=== PATIENT | male | born 1975 | race Caucasian/White ===

== ENCOUNTER 2019-12-03 08:36 | Emergency (ER) | payer OTHER ==
[~2019-12-03] VITALS: Ht 167.6 cm; Wt 63.5 kg
[2019-12-03] MEDS ORDERED: HYDR1TAB94 PO (09:44)
== END 2019-12-03 10:00 | disposition home or self-care (01) ==
LOC: ER 08:36
DX: S82.831A Other fracture of upper and lower end of right fibula, initial encounter for closed fracture (principal); F17.210 Nicotine dependence, cigarettes, uncomplicated; Y30.XXXA Falling, jumping or pushed from a high place, undetermined intent, initial encounter
CPT/HCPCS: 29505; 73590; 99283-25; A9270-GY

== ENCOUNTER 2020-02-29 02:14 | Emergency (ER) | payer OTHER | END 2020-02-29 05:45 | disposition home or self-care (01) | LOC: ER 02:14 | DX: N28.9 Disorder of kidney and ureter, unspecified (principal); M62.82 Rhabdomyolysis; F17.210 Nicotine dependence, cigarettes, uncomplicated; Z79.82 Long term (current) use of aspirin; Z79.899 Other long term (current) drug therapy ==

== ENCOUNTER 2020-11-01 04:45 | Observation (INO) | payer OTHER ==
[~2020-11-01] VITALS: Ht 167.6 cm; Wt 60.8 kg
[~2020-11-01 04:45] MED LIST: ASPI81CH PO; HYDR1TAB94 PO; LISI5 PO
[2020-11-01 05:12] LABS: BASOPHILS ABSOLUTE AUTO 0.03 K/mm3 (0.00-0.23); BASOPHILS PERCENT AUTO 0 % (0-2); EOSINOPHILS PERCENT AUTO 0 % (0-6); Hemoglobin 17.8 g/dL (13.5-17.5); IMMATURE GRAN ABSOLUTE AUTO 0.05 K/mm3 (0.00-0.10); IMMATURE GRAN PERCENT AUTO 1 % (0-1); LYMPHOCYTES ABSOLUTE AUTO 1.28 K/mm3 (0.84-5.20); LYMPHOCYTES PERCENT AUTO 12 % (21-46); MONOCYTES ABSOLUTE AUTO 1.03 K/mm3 (0.16-1.47); MONOCYTES PERCENT AUTO 10 % (4-13); Mean Corpuscular HGB 31.8 pg (26.0-34.0); Mean Corpuscular HGB Conc 35.6 g/dL (31.5-36.5); Mean Corpuscular Volume 89 fL (80-100); Mean Platelet Volume 10.3 fL (9.1-12.4); NEUTROPHILS ABSOLUTE AUTO 8.02 K/mm3 (1.96-9.15); NEUTROPHILS PERCENT AUTO 77 % (41-73); Platelet Count 262 K/mm3 (150-400); RDW Coefficient Variation 12.5 % (11.7-14.2); RDW Standard Deviation 40.9 fL (35.1-46.3); White Blood Cell Count 10.41 K/mm3 (4.00-11.30)
[2020-11-01 05:34] LABS: Alanine Aminotransfer (ALT/SGP 35 U/L (12-78); Albumin, Blood 5.2 g/dL (3.4-5.0); Albumin/Globulin Ratio 1.1 (0.8-1.8); Alk Phos 85 U/L (50-136); Anion Gap 17 mmol/L (6-16); Aspartate Aminotrans (AST/SGOT 59 U/L (12-37); Bilirubin, Total 1.1 mg/dL (0.1-1.0); Blood Urea Nitrogen 45 mg/dL (8-24); Bun/Creatinine Ratio 16.4 (12.0-20.0); CO2, Blood 22 mmol/L (21-32); CPK Creatine Kinase 812 U/L (39-308); Calcium, Blood 9.9 mg/dL (8.5-10.1); Chloride, Blood 88 mmol/L (98-108); Creatine Kinase MB 7.8 ng/mL (0.0-3.6); Creatinine, Blood 2.75 mg/dL (0.60-1.20); Ethanol (Alcohol), Blood, Med <3 mg/dL; Globulin, Blood 4.7 g/dL (2.2-4.0); Glomerular Filtration Rate 26 (60-); Glucose, Blood 130 mg/dL (70-99); Magnesium, Blood 2.2 mg/dL (1.6-2.4); Potassium, Blood 4.8 mmol/L (3.5-5.5); Sodium, Blood 127 mmol/L (136-145); Total Protein, Blood 9.9 g/dL (6.4-8.2); Troponin I <0.015 ng/mL (0.000-0.040)
[2020-11-01 06:10] LABS: U Amphetamine Screen Not Detected; U Barbituate Screen Not Detected; U Benzodiazapine Screen Not Detected; U Buprenorphine Screen Not Detected; U Cannabinoids Screen DETECTED; U Cocaine Screen Not Detected; U Methadone Screen Not Detected; U Methamphetamine Screen Not Detected; U Opiates Screen Not Detected; U Oxycodone Screen Not Detected; U Phencyclidine Screen Not Detected; U Propoxyphene Screen Not Detected
[2020-11-01 06:55] LABS: CHOL/HDL RATIO 1.7; Cholesterol 283 mg/dL (50-200); HDL Cholesterol 166 mg/dL (>39); LDL/HDL RATIO 0.6; Low Density Lipoprotein Chol 96 mg/dL (0-110); Triglycerides 107 mg/dL (30-160); Very Low Density Lipoprot Chol 21 mg/dL (6-32)
[2020-11-01] MEDS ORDERED: ESCI10 PO (08:29)
[2020-11-01] MEDS ORDERED: ZOLP5 PO (10:36)
--- NOTE | 2020-11-01 17:51 | NUR ---
PATIENT IS ALERT AND ORIENTED AND COOPERATIVE WITH CARE. CIWA Q4H PER PROTOCOL. CIWA SCORE 2 SINCE ON MEDICAL FLOOR. PATIENT HAS FLUIDS RUNNING. NO C/O ABDOMINAL PAIN. PATIENT IS INDEPENDENT IN HER ROOM. WILL CONTINUE TO MONITOR
--- NOTE | 2020-11-02 04:37 | NUR ---
SHIFT SUMMARY ASSUMED CARE OF PT AT 1900. PT IS A/OX4. HEART SOUNDS REGULAR, LUNG SOUNDS CLEAR. PT DENIES PAIN IN ABD. PT IS INDEPENDENT IN ROOM. CIWAH A 2-4 FOR TREMORS. CALL LIGHT IN REACH, BED IN LOWEST POSTION.
[2020-11-02 05:00] LABS: BASOPHILS ABSOLUTE AUTO 0.04 K/mm3 (0.00-0.23); BASOPHILS PERCENT AUTO 1 % (0-2); EOSINOPHILS PERCENT AUTO 1 % (0-6); Hematocrit 45.6 % (37.0-53.0); Hemoglobin 15.8 g/dL (13.5-17.5); IMMATURE GRAN ABSOLUTE AUTO 0.04 K/mm3 (0.00-0.10); IMMATURE GRAN PERCENT AUTO 1 % (0-1); LYMPHOCYTES ABSOLUTE AUTO 2.08 K/mm3 (0.84-5.20); LYMPHOCYTES PERCENT AUTO 29 % (21-46); MONOCYTES ABSOLUTE AUTO 1.01 K/mm3 (0.16-1.47); MONOCYTES PERCENT AUTO 14 % (4-13); Mean Corpuscular HGB Conc 34.6 g/dL (31.5-36.5); Mean Corpuscular Volume 92 fL (80-100); Mean Platelet Volume 10.4 fL (9.1-12.4); NEUTROPHILS ABSOLUTE AUTO 3.89 K/mm3 (1.96-9.15); NEUTROPHILS PERCENT AUTO 54 % (41-73); Platelet Count 173 K/mm3 (150-400); RDW Coefficient Variation 12.1 % (11.7-14.2); RDW Standard Deviation 41.1 fL (35.1-46.3); Red Blood Cell Count 4.94 M/mm3 (4.30-5.90); White Blood Cell Count 7.16 K/mm3 (4.00-11.30)
[2020-11-02 05:22] LABS: Alanine Aminotransfer (ALT/SGP 30 U/L (12-78); Albumin, Blood 3.8 g/dL (3.4-5.0); Alk Phos 56 U/L (50-136); Anion Gap 5 mmol/L (6-16); Aspartate Aminotrans (AST/SGOT 69 U/L (12-37); Bilirubin, Total 1.2 mg/dL (0.1-1.0); Blood Urea Nitrogen 18 mg/dL (8-24); Bun/Creatinine Ratio 19.7 (12.0-20.0); CO2, Blood 26 mmol/L (21-32); Calcium, Blood 8.3 mg/dL (8.5-10.1); Chloride, Blood 100 mmol/L (98-108); Creatinine, Blood 0.91 mg/dL (0.60-1.20); Glomerular Filtration Rate >60 (60-); Glucose, Blood 96 mg/dL (70-99); Phosphorus, Blood 1.6 mg/dL (2.5-4.9); Potassium, Blood 3.9 mmol/L (3.5-5.5); Sodium, Blood 131 mmol/L (136-145)
[2020-11-02 05:23] LABS: Globulin, Blood 3.7 g/dL (2.2-4.0)
[2020-11-02 05:38] LABS: Total Protein, Blood 7.5 g/dL (6.4-8.2)
[2020-11-02] MEDS ORDERED: MULVITA PO (14:07)
[2020-11-02] MEDS ORDERED: B-1100 M1 PO (14:07)
--- NOTE | 2020-11-02 14:42 | NUR ---
PATIENT D/C'D TO HOME WITH FAMILY. DC INSTRUCTIONS AND EDUCATION DISCUSSED WITH PATIENT AND COPY PROVIDED. RX MEDICATIONS FAXED TO IN [place]. PATIENT DENIES ANY FURTHER QUESTIONS OR CONCERNS.
== END 2020-11-02 14:29 | disposition home or self-care (01) ==
LOC: ER 04:45 → MEDS 04:46 → ER 05:39 → SURS 05:39 → ER 05:49 → MEDS 05:49
PROVIDERS: Emergency Medicine; ADMIT Internal Medicine
DX: N17.9 Acute kidney failure, unspecified (principal); E86.0 Dehydration; E87.1 Hypo-osmolality and hyponatremia; I10 Essential (primary) hypertension; F10.20 Alcohol dependence, uncomplicated; F12.90 Cannabis use, unspecified, uncomplicated; E83.39 Other disorders of phosphorus metabolism; F17.210 Nicotine dependence, cigarettes, uncomplicated
CPT/HCPCS: 36415; 76770; 80053; 80061; 82550; 82553; 83690; 83735; 84100; 84484; 85025; 93005; 93010; 96372; 96372-59; 96374; 96376; 99285-25; A9270; C9113; G0378; G0480; J1630; J1650; J3411; J3475; J7030; J7042; J7060

== ENCOUNTER 2020-12-06 17:53 | Emergency (ER) | payer OTHER ==
[~2020-12-06] VITALS: Ht 167.6 cm; Wt 65.8 kg
[~2020-12-06 17:53] MED LIST changes: +B-1100 M1 PO; +ESCI10 PO; +MULVITA PO; +ZOLP5 PO
[2020-12-06 18:27] LABS: BASOPHILS ABSOLUTE AUTO 0.05 K/mm3 (0.00-0.23); BASOPHILS PERCENT AUTO 1 % (0-2); EOSINOPHILS ABSOLUTE AUTO 0.07 K/mm3 (0.00-0.68); EOSINOPHILS PERCENT AUTO 1 % (0-6); Hematocrit 50.9 % (37.0-53.0); Hemoglobin 17.8 g/dL (13.5-17.5); IMMATURE GRAN ABSOLUTE AUTO 0.05 K/mm3 (0.00-0.10); IMMATURE GRAN PERCENT AUTO 1 % (0-1); LYMPHOCYTES ABSOLUTE AUTO 1.56 K/mm3 (0.84-5.20); LYMPHOCYTES PERCENT AUTO 15 % (21-46); MONOCYTES ABSOLUTE AUTO 1.17 K/mm3 (0.16-1.47); MONOCYTES PERCENT AUTO 11 % (4-13); Mean Corpuscular HGB 31.2 pg (26.0-34.0); Mean Corpuscular Volume 89 fL (80-100); Mean Platelet Volume 9.8 fL (9.1-12.4); NEUTROPHILS PERCENT AUTO 72 % (41-73); Platelet Count 285 K/mm3 (150-400); RDW Coefficient Variation 12.3 % (11.7-14.2); Red Blood Cell Count 5.71 M/mm3 (4.30-5.90)
[2020-12-06 18:44] LABS: Albumin, Blood 4.8 g/dL (3.4-5.0); Albumin/Globulin Ratio 1.1 (0.8-1.8); Bilirubin, Total 1.1 mg/dL (0.1-1.0); Bun/Creatinine Ratio 12.5 (12.0-20.0); Calcium, Blood 9.7 mg/dL (8.5-10.1); Creatinine, Blood 2.08 mg/dL (0.60-1.20); Globulin, Blood 4.5 g/dL (2.2-4.0); Potassium, Blood 3.6 mmol/L (3.5-5.5); Total Protein, Blood 9.3 g/dL (6.4-8.2)
[2020-12-06] MEDS ORDERED: ONDA4ODT MM (21:35)
== END 2020-12-06 21:45 | disposition home or self-care (01) ==
LOC: ER 17:53
PROVIDERS: Physician Assistant
DX: E86.0 Dehydration (principal); R11.2 Nausea with vomiting, unspecified; R19.7 Diarrhea, unspecified; Z79.899 Other long term (current) drug therapy; Z87.891 Personal history of nicotine dependence
CPT/HCPCS: 36415; 80053; 85025; 96374; 99284-25; J2405; J7030

== ENCOUNTER 2021-01-28 07:03 | Emergency (ER) | payer OTHER ==
[~2021-01-28] VITALS: Ht 167.6 cm; Wt 65.8 kg
[~2021-01-28 07:03] MED LIST changes: +ONDA4ODT MM
[2021-01-28 09:06] LABS: BASOPHILS ABSOLUTE AUTO 0.03 K/mm3 (0.00-0.23); BASOPHILS PERCENT AUTO 1 % (0-2); EOSINOPHILS ABSOLUTE AUTO 0.07 K/mm3 (0.00-0.68); EOSINOPHILS PERCENT AUTO 1 % (0-6); Hematocrit 43.4 % (37.0-53.0); Hemoglobin 15.5 g/dL (13.5-17.5); IMMATURE GRAN ABSOLUTE AUTO 0.01 K/mm3 (0.00-0.10); IMMATURE GRAN PERCENT AUTO 0 % (0-1); LYMPHOCYTES PERCENT AUTO 28 % (21-46); MONOCYTES ABSOLUTE AUTO 0.82 K/mm3 (0.16-1.47); MONOCYTES PERCENT AUTO 17 % (4-13); Mean Corpuscular HGB 32.1 pg (26.0-34.0); Mean Corpuscular HGB Conc 35.7 g/dL (31.5-36.5); Mean Corpuscular Volume 90 fL (80-100); NEUTROPHILS ABSOLUTE AUTO 2.61 K/mm3 (1.96-9.15); NEUTROPHILS PERCENT AUTO 53 % (41-73); Platelet Count 234 K/mm3 (150-400); RDW Standard Deviation 39.8 fL (35.1-46.3); Red Blood Cell Count 4.83 M/mm3 (4.30-5.90); White Blood Cell Count 4.94 K/mm3 (4.00-11.30)
[2021-01-28 09:07] LABS: Alanine Aminotransfer (ALT/SGP 33 U/L (12-78); Albumin, Blood 3.9 g/dL (3.4-5.0); Albumin/Globulin Ratio 1.1 (0.8-1.8); Alk Phos 65 U/L (50-136); Anion Gap 7 mmol/L (6-16); Aspartate Aminotrans (AST/SGOT 45 U/L (12-37); Bilirubin, Total 0.8 mg/dL (0.1-1.0); Blood Urea Nitrogen 13 mg/dL (8-24); Bun/Creatinine Ratio 15.1 (12.0-20.0); CO2, Blood 29 mmol/L (21-32); Calcium, Blood 8.4 mg/dL (8.5-10.1); Chloride, Blood 98 mmol/L (98-108); Creatinine, Blood 0.86 mg/dL (0.60-1.20); Globulin, Blood 3.5 g/dL (2.2-4.0); Glomerular Filtration Rate >60 (60-); Glucose, Blood 104 mg/dL (70-99); Potassium, Blood 3.5 mmol/L (3.5-5.5); Sodium, Blood 134 mmol/L (136-145); Total Protein, Blood 7.4 g/dL (6.4-8.2)
[2021-01-28] MEDS ORDERED: ONDA4ODT MM (09:38)
== END 2021-01-28 10:06 | disposition home or self-care (01) ==
LOC: ER 07:03
PROVIDERS: Physician Assistant
DX: R11.2 Nausea with vomiting, unspecified (principal); R19.7 Diarrhea, unspecified; I10 Essential (primary) hypertension; Z79.899 Other long term (current) drug therapy; Z20.822 Contact with and (suspected) exposure to COVID-19
CPT/HCPCS: 36415; 80053; 83690; 85025; 96361; 96374; 99284-25; A9270; J2405; J7030

== ENCOUNTER 2023-03-01 20:07 | Emergency (ER) | payer OTHER ==
[~2023-03-01] VITALS: Ht 167.6 cm; Wt 59.0 kg
[2023-03-01 20:53] LABS: BASOPHILS ABSOLUTE AUTO 0.02 K/mm3 (0.00-0.23); BASOPHILS PERCENT AUTO 0 % (0-2); EOSINOPHILS ABSOLUTE AUTO 0.01 K/mm3 (0.00-0.68); EOSINOPHILS PERCENT AUTO 0 % (0-6); Hematocrit 42.8 % (37.0-53.0); Hemoglobin 14.8 g/dL (13.5-17.5); IMMATURE GRAN ABSOLUTE AUTO 0.02 K/mm3 (0.00-0.10); IMMATURE GRAN PERCENT AUTO 0 % (0-1); LYMPHOCYTES ABSOLUTE AUTO 0.97 K/mm3 (0.84-5.20); LYMPHOCYTES PERCENT AUTO 12 % (21-46); MONOCYTES ABSOLUTE AUTO 0.65 K/mm3 (0.16-1.47); MONOCYTES PERCENT AUTO 8 % (4-13); Mean Corpuscular HGB 32.5 pg (26.0-34.0); Mean Corpuscular HGB Conc 34.6 g/dL (31.5-36.5); Mean Corpuscular Volume 94 fL (80-100); Mean Platelet Volume 10.1 fL (9.1-12.4); NEUTROPHILS ABSOLUTE AUTO 6.18 K/mm3 (1.96-9.15); NEUTROPHILS PERCENT AUTO 79 % (41-73); Platelet Count 259 K/mm3 (150-400); RDW Standard Deviation 44.9 fL (35.1-46.3); Red Blood Cell Count 4.55 M/mm3 (4.30-5.90); White Blood Cell Count 7.85 K/mm3 (4.00-11.30)
[2023-03-01 21:13] LABS: Alanine Aminotransfer (ALT/SGP 28 U/L (12-78); Albumin, Blood 3.6 g/dL (3.4-5.0); Alk Phos 46 U/L (50-136); Anion Gap 6 mmol/L (6-16); Aspartate Aminotrans (AST/SGOT 53 U/L (12-37); Bilirubin, Total 0.7 mg/dL (0.1-1.0); Blood Urea Nitrogen 5 mg/dL (8-24); Bun/Creatinine Ratio 6.3 (12.0-20.0); CO2, Blood 28 mmol/L (21-32); Calcium, Blood 9.2 mg/dL (8.5-10.1); Chloride, Blood 102 mmol/L (98-108); Globulin, Blood 3.6 g/dL (2.2-4.0); Glomerular Filtration Rate 108 (60-); Glucose, Blood 126 mg/dL (70-99); Potassium, Blood 3.8 mmol/L (3.5-5.5); Sodium, Blood 136 mmol/L (136-145); Total Protein, Blood 7.2 g/dL (6.4-8.2)
[2023-03-01 21:55] LABS: Source, Urine Clean Catch
[2023-03-01 21:58] LABS: Magnesium, Blood 1.5 mg/dL (1.6-2.4)
[2023-03-01 22:13] LABS: Bilirubin, Urine Neg (Neg); Blood, Urine Neg (Neg); Glucose Qualitative, Urine Neg (Neg); Ketones, Urine 3+ (Neg); Leukocyte Esterase, Urine Neg (Neg); Nitrite, Urine Neg (Neg); Protein, Urine 2+ (Neg); Urobilinogen, Urine NORM (Normal)
[2023-03-01 22:51] LABS: Appearance, Urine Hazy (Clear); Color, Urine Yellow (P-Yellow)
[2023-03-01 22:52] LABS: Bacteria Few /hpf; Hyaline Casts 0-2 /lpf (0-2); Mucus Light (0-Heavy); Red Blood Cells, Urine 0-2 /hpf (0-2); Squamous Epithelial Cells Few /hpf (Few); White Blood Cells, Urine 0-2 /hpf (0-5)
[2023-03-01 22:55] LABS: Ethanol (Alcohol), Blood, Med <3 mg/dL
[2023-03-01 23:07] LABS: U Cannabinoids Screen DETECTED
[2023-03-01 23:08] LABS: U Amphetamine Screen Not Detected; U Barbituate Screen Not Detected; U Benzodiazapine Screen Not Detected; U Buprenorphine Screen Not Detected; U Cocaine Screen Not Detected; U Methadone Screen Not Detected; U Methamphetamine Screen Not Detected; U Opiates Screen Not Detected; U Oxycodone Screen Not Detected; U Phencyclidine Screen Not Detected; U Propoxyphene Screen Not Detected
[2023-03-01 23:35] LABS: International Normalized Ratio 1.02; Prothrombin Time Results 10.7 Sec (9.7-11.5)
[2023-03-02 00:15] VITALS: BP 152/88
[2023-03-02] MEDS ORDERED: LEVE500 PO (00:22)
== END 2023-03-02 00:41 | disposition home or self-care (01) ==
LOC: ER 20:07
PROVIDERS: Emergency Medicine
DX: R56.9 Unspecified convulsions (principal); E86.0 Dehydration; F10.139 Alcohol abuse with withdrawal, unspecified; Z79.899 Other long term (current) drug therapy; I10 Essential (primary) hypertension; Z86.73 Personal history of transient ischemic attack (TIA), and cerebral infarction without residual deficits
CPT/HCPCS: 70450; 71046; 80053; 81001; 82550; 82947; 83735; 85025; 85610; 85730; 93005; 93010; 96361; 96365; 96375; 99285-25; J1953; J2405; J7030

== ENCOUNTER 2023-03-26 19:29 | Inpatient (IN) | payer OTHER ==
[~2023-03-26] VITALS: Ht 167.6 cm; Wt 59.7 kg
[~2023-03-26 19:29] MED LIST changes: +LEVE500 PO
[2023-03-26 20:03] LABS: Source, Urine Clean Catch
[2023-03-26 20:06] LABS: BASOPHILS ABSOLUTE AUTO 0.03 K/mm3 (0.00-0.23); BASOPHILS PERCENT AUTO 0 % (0-2); EOSINOPHILS ABSOLUTE AUTO 0.04 K/mm3 (0.00-0.68); EOSINOPHILS PERCENT AUTO 1 % (0-6); Hematocrit 41.5 % (37.0-53.0); Hemoglobin 15.5 g/dL (13.5-17.5); IMMATURE GRAN ABSOLUTE AUTO 0.04 K/mm3 (0.00-0.10); IMMATURE GRAN PERCENT AUTO 1 % (0-1); LYMPHOCYTES ABSOLUTE AUTO 0.57 K/mm3 (0.84-5.20); LYMPHOCYTES PERCENT AUTO 7 % (21-46); MONOCYTES ABSOLUTE AUTO 0.95 K/mm3 (0.16-1.47); MONOCYTES PERCENT AUTO 12 % (4-13); Mean Corpuscular HGB 31.9 pg (26.0-34.0); Mean Corpuscular HGB Conc 37.3 g/dL (31.5-36.5); Mean Corpuscular Volume 85 fL (80-100); Mean Platelet Volume 12.4 fL (9.1-12.4); NEUTROPHILS ABSOLUTE AUTO 6.08 K/mm3 (1.96-9.15); NEUTROPHILS PERCENT AUTO 79 % (41-73); Platelet Count 143 K/mm3 (150-400); RDW Coefficient Variation 11.8 % (11.7-14.2); RDW Standard Deviation 36.7 fL (35.1-46.3); Red Blood Cell Count 4.86 M/mm3 (4.30-5.90); White Blood Cell Count 7.71 K/mm3 (4.00-11.30)
[2023-03-26 20:07] LABS: Appearance, Urine Cloudy (Clear); Blood, Urine 2+ (Neg); Color, Urine Yellow (P-Yellow); Glucose Qualitative, Urine 1+ (Neg); Ketones, Urine 1+ (Neg); Leukocyte Esterase, Urine 1+ (Neg); Nitrite, Urine Neg (Neg); Protein, Urine 3+ (Neg); Specific Gravity, Urine 1.025 (1.003-1.022); Urobilinogen, Urine 2+ (Normal)
[2023-03-26 20:17] LABS: Bilirubin, Urine 1+ (Neg)
[2023-03-26 20:23] LABS: Bacteria Mod /hpf; Squamous Epithelial Cells Not Seen /hpf (Few)
[2023-03-26 20:24] LABS: Ethanol (Alcohol), Blood, Med 117 mg/dL; Magnesium, Blood 2.3 mg/dL (1.6-2.4)
[2023-03-26 20:28] LABS: Alanine Aminotransfer (ALT/SGP 63 U/L (12-78); Albumin, Blood 3.3 g/dL (3.4-5.0); Albumin/Globulin Ratio 0.8 (0.8-1.8); Alk Phos 69 U/L (50-136); Anion Gap Unable to Calculate mmol/L (6-16); Aspartate Aminotrans (AST/SGOT 116 U/L (12-37); Bilirubin, Total 1.2 mg/dL (0.1-1.0); Blood Urea Nitrogen 37 mg/dL (8-24); Bun/Creatinine Ratio 11.9 (12.0-20.0); CO2, Blood 33 mmol/L (21-32); Calcium, Blood 8.1 mg/dL (8.5-10.1); Chloride, Blood <50 mmol/L (98-108); Creatinine, Blood 3.12 mg/dL (0.60-1.20); Globulin, Blood 4.1 g/dL (2.2-4.0); Glomerular Filtration Rate 24 (60-); Glucose, Blood 184 mg/dL (70-99); Potassium, Blood 3.1 mmol/L (3.5-5.5); Sodium, Blood 114 mmol/L (136-145); Total Protein, Blood 7.4 g/dL (6.4-8.2)
[2023-03-26 21:30] LABS: Magnesium, Blood 1.9 mg/dL (1.6-2.4)
[2023-03-26 21:49] LABS: Bun/Creatinine Ratio 12.9 (12.0-20.0); Creatinine, Blood 2.79 mg/dL (0.60-1.20); Potassium, Blood 2.8 mmol/L (3.5-5.5)
[2023-03-27] VITALS (44 sets, daily range): BP systolic 92–184; BP diastolic 70–151
[2023-03-27 01:08] LABS: International Normalized Ratio 0.98; Prothrombin Time Results 10.3 Sec (9.7-11.5)
[2023-03-27 01:27] LABS: Albumin, Blood 3.2 g/dL (3.4-5.0); Anion Gap 16 mmol/L (6-16); Blood Urea Nitrogen 32 mg/dL (8-24); Bun/Creatinine Ratio 14.6 (12.0-20.0); CO2, Blood 40 mmol/L (21-32); Calcium, Blood 7.5 mg/dL (8.5-10.1); Chloride, Blood 63 mmol/L (98-108); Creatinine, Blood 2.19 mg/dL (0.60-1.20); Glomerular Filtration Rate 36 (60-); Glucose, Blood 138 mg/dL (70-99); Phosphorus, Blood 5.1 mg/dL (2.5-4.9); Potassium, Blood 3.3 mmol/L (3.5-5.5); Sodium, Blood 119 mmol/L (136-145)
[2023-03-27 04:14] LABS: Albumin, Blood 3.1 g/dL (3.4-5.0); Blood Urea Nitrogen 32 mg/dL (8-24); Bun/Creatinine Ratio 15.3 (12.0-20.0); CHOL/HDL RATIO 1.5; CO2, Blood 41 mmol/L (21-32); Calcium, Blood 7.5 mg/dL (8.5-10.1); Chloride, Blood 67 mmol/L (98-108); Cholesterol 164 mg/dL (50-200); Creatinine, Blood 2.09 mg/dL (0.60-1.20); Glomerular Filtration Rate 38 (60-); Glucose, Blood 143 mg/dL (70-99); HDL Cholesterol 112 mg/dL (>39); LDL/HDL RATIO 0.3; Low Density Lipoprotein Chol 35 mg/dL (0-110); Phosphorus, Blood 4.3 mg/dL (2.5-4.9); Potassium, Blood 3.4 mmol/L (3.5-5.5); Triglycerides 86 mg/dL (30-160); Very Low Density Lipoprot Chol 17 mg/dL (6-32)
[2023-03-27 04:22] LABS: Hematocrit 36.7 % (37.0-53.0); Hemoglobin 13.7 g/dL (13.5-17.5); Mean Corpuscular HGB Conc 37.3 g/dL (31.5-36.5); Mean Corpuscular Volume 86 fL (80-100); Mean Platelet Volume 12.8 fL (9.1-12.4); Platelet Count 110 K/mm3 (150-400); RDW Coefficient Variation 11.9 % (11.7-14.2); RDW Standard Deviation 36.9 fL (35.1-46.3); Red Blood Cell Count 4.28 M/mm3 (4.30-5.90); White Blood Cell Count 4.93 K/mm3 (4.00-11.30)
[2023-03-27 04:29] LABS: BAND PERCENT MAN 14 % (0-8); BASOPHILS PERCENT MAN 0 % (0-2); EOSINOPHILS PERCENT MAN 0 % (0-6); LYMPHOCYTES ABSOLUTE MAN 0.39 K/mm3 (0.84-5.20); LYMPHOCYTES PERCENT MAN 8 % (21-46); MONOCYTES ABSOLUTE MAN 0.83 K/mm3 (0.16-1.47); MONOCYTES PERCENT MAN 17 % (4-13); NEUTROPHILS ABSOLUTE MAN 3.69 K/mm3 (1.96-9.15); SEG NEUTROPHILS PERCENT MAN 61 % (41-73); TOTAL CELLS COUNTED 100
[2023-03-27 04:47] LABS: Anion Gap 11 mmol/L (6-16); Sodium, Blood 119 mmol/L (136-145)
[2023-03-27 06:56] LABS: Albumin, Blood 3.1 g/dL (3.4-5.0); Anion Gap 10 mmol/L (6-16); Blood Urea Nitrogen 31 mg/dL (8-24); Bun/Creatinine Ratio 16.6 (12.0-20.0); CO2, Blood 41 mmol/L (21-32); Calcium, Blood 7.7 mg/dL (8.5-10.1); Chloride, Blood 70 mmol/L (98-108); Creatinine, Blood 1.87 mg/dL (0.60-1.20); Glomerular Filtration Rate 44 (60-); Glucose, Blood 139 mg/dL (70-99); Phosphorus, Blood 3.6 mg/dL (2.5-4.9); Sodium, Blood 121 mmol/L (136-145)
--- NOTE | 2023-03-27 07:16 | NUR ---
ASSUMED CARE: PT RESTING IN BED, O2 MASK AT 6L. SINUS TACH AT 101 WITH PVCS. RECENTLY MEDICATED WITH ATIVAN BY NIGHT RN. NS AT 100/HR RUNNING AT THIS TIME. NO ACUTE NEEDS OR CONCERNS AT THIS TIME.
--- NOTE | 2023-03-27 07:47 | NUR ---
CALL TO DR ELY WITH CONCERNS ABOUT PT'S RESPIRATORY STATUS. LUNG SOUNDS VERY COARSE AND NO XRAY HAD BEEN PERFORMED BUT ABDOMINAL CT DONE. REQUESTS CXR TO BE ORDERED AND WILL REVIEW CHART FOR ORDERS REGARDING MORE FLUIDS WITH PANCREATITIS AND ABX FOR UA RESULTS.
[2023-03-27 08:07] LABS: Free Thyroxine 1.3 ng/dL (0.70-1.60); Thyroid Stimulating Hormone 0.343 uIU/mL (0.360-4.800); Triiodothyronine, Free 2.7 pg/mL (2.18-3.98)
[2023-03-27 08:51] LABS: PCO2 Arterial 51.3 mmHg (35-45); PO2 Arterial 72.1 mmHg (80-100); pH Blood Arterial 7.57 (7.35-7.45)
--- NOTE | 2023-03-27 08:57 | NUR ---
CALL TO DR ELY TO RELAY ABG RESULTS WELL XRAY. ORDERS FOR NEB TX AT THIS TIME. RT AWARE AND TITRATED O2 DOWN TO 4L. RT STATES THEY WILL SWITCH PT TO NC WELL.
--- NOTE | 2023-03-27 10:54 | NUR ---
DR ELY CAME TO SEE PT. STATES THERE IS NOT ENOUGH ON UA AND XRAY OR LABS TO WARRANT ABX AT THIS TIME. DR TO REVIEW HOME MEDS DUE TO PT'S TELE ALARMING WITH LONG QT INTERVAL. DR TO REVIEW LABS AND CHART FOR FLUID CHANGES. PT CURRENTLY SOMNOLENT AND RESISTENT TO CARE BUT NO FURTHER MEDICATING HAS BEEN REQUIRED FOR CIWA SCORE AT THIS TIME.
--- NOTE | 2023-03-27 11:16 | NUR ---
RETURN CALL TO PT'S DAUGHTER LUH TO GIVE UPDATE. STATES SHE WILL COME VISIT AFTER SHE GETS OFF WORK.
[2023-03-27 13:12] LABS: Hematocrit 39.3 % (37.0-53.0); Hemoglobin 14.2 g/dL (13.5-17.5)
[2023-03-27 13:35] LABS: Albumin, Blood 3.1 g/dL (3.4-5.0); Anion Gap 9 mmol/L (6-16); Blood Urea Nitrogen 26 mg/dL (8-24); Bun/Creatinine Ratio 18.7 (12.0-20.0); CO2, Blood 37 mmol/L (21-32); Calcium, Blood 7.9 mg/dL (8.5-10.1); Chloride, Blood 78 mmol/L (98-108); Creatinine, Blood 1.39 mg/dL (0.60-1.20); Glomerular Filtration Rate 62 (60-); Glucose, Blood 126 mg/dL (70-99); Magnesium, Blood 2.8 mg/dL (1.6-2.4); Potassium, Blood 3.5 mmol/L (3.5-5.5); Sodium, Blood 124 mmol/L (136-145)
--- NOTE | 2023-03-27 13:36 | NUR ---
PT'S DAUGHTER ARRIVED AND WAS GIVEN UPDATE. STATES THAT PT HAS HAD HICCUPS OFF AND ON FOR YEARS THAT WILL LAST FOR DAYS. SHE IS UNSURE WHAT TRIGGERS THEM OR WHAT HELPS. PT BECAME RESTLESS AND WAS ATTEMPTING TO CLIMB OUT OF BED WHILE SHE WAS IN ROOM, STARTED PULLING AT IV LINES AND SAYING HE NEEDED TO GET UP. SPEECH IS GARBLED AND DIFFICULT TO UNDERSTAND AT TIMES. MEDICATED FOR CIWA OF 10 WITH 2MG ATIVAN. NO FURTHER NEEDS AT THIS TIME.
--- NOTE | 2023-03-27 14:59 | NUR ---
PT BECAME INCREASINGLY AGITATED AFTER FAMILY VISIT. IV SITES LOST DUE TO INCREASED ARM MOVEMENT. POWERGLIDE IN PLACE. INCREASED AGITATION WITH THIS STIMULATION. SATURATION DECREASING WITH ACTIVITY. MEDICATED WITH ATIVAN AND NUMBERS IMPROVED AND THEN DECREASED TO MID 70S AND MAINTAINTED. SWITCHED FROM NC TO OXYGEN MASK AND THEN FROM OXYGEN MASK TO NRB. RT AT BEDSIDE TO DO NT SUCTIONING.
--- NOTE | 2023-03-27 16:00 | NUR ---
CALL TO DR ELY DUE TO RT BEING AT BEDSIDE AND PLACED NASAL TRUMPET. SATURATIONS VARY BETWEEN 88 AND 94%. HR IN 120S AND BP ELEVATED. ASKED DR ABOUT ECHO, DR ELY ORDERED CRATER AND PACKER CONSULT AND COVID SWAB. SILVER CHASER AND OTHER NURSE AT BEDSIDE ASSISTING WITH ATTENDS CHANGE THAT APPEARED LIQUID BLACK/BROWN STOOL. DR DIAZ REVIEWING CHART AT THIS TIME.
--- NOTE | 2023-03-27 16:16 | NUR ---
Intubation: 1610: Dr. Crandall to bedside to evaluate pt. Plan to intubate pt for airway protection. Dr. Crandall, RT and RNs prepping for intubation at this time. Pt currently satting 89-92% on 15L/min NRB. 1620: 20mg etomidate given. Pt being bagged. 1621: 8.0 ET tube placed by Dr. Crandall, + color change, + bilateral breath sounds, tube depth 25 cm at upper gums. 1626: Propofol gtt initiated at 30 mcg/kg/min. Pt hypertensive, tachycardic, biting at ET tube. 1629: Vent settings AC/VC, rate 16, TV 350, PEEP 10, FiO2 100%.
[2023-03-27 16:45] LABS: Influenza A, PCR NEGATIVE (NEGATIVE); Influenza B, PCR NEGATIVE (NEGATIVE); Resp Syncytial Virus, PCR NEGATIVE (NEGATIVE); SARS-Cov-2 (COVID-19) PCR, MMC NEGATIVE (NEGATIVE)
--- NOTE | 2023-03-27 17:13 | NUR ---
AFTER DR DIAZ'S EVALUATION OF PT, INTUBATION WAS DEEMED NECESSARY DUE TO PT'S VSS AND NOT PROTECTING AIRWAY WELL. SEE INTUBATION NOTE. PT NOW INTUBATED AND SETTINGS AC/VC 16/350/10/100%. PROPOFOL TITRATED TO 40MCG/KG. EKG PERFORMED FOR CHANGE IN CARDIAC RHYTHM AND PRESENTED TO DR DIAZ. DR STATES SHE WILL ORDER ECHO. CURRENT HR 120, SINUS TACH. OG TUBE PLACED AND CONFIRMED IN STOMACH WITH DRAINAGE APPEARING TO BE PINK/PARK MUCOUS THAT MATCHES ETT SECRETIONS. PLACEMENT CONFIRMED BY MD. DR DIAZ CALLED PT'S DAUGHTER TO MAKE HER AWARE. CT TECHNOLOGIST AT BEDSIDE PLACING PICC AT THIS TIME.
[2023-03-27 17:40] LABS: PCO2 Arterial 46.6 mmHg (35-45); PO2 Arterial 308 mmHg (80-100); pH Blood Arterial 7.56 (7.35-7.45)
[2023-03-27 18:02] LABS: Hematocrit 35.1 % (37.0-53.0); Hemoglobin 12.5 g/dL (13.5-17.5)
--- NOTE | 2023-03-27 18:37 | NUR ---
SHIFT SUMMARY: PT ENDED SHIFT INTUBATED AND SEDATED. AC/VC AT 16/350/. SEDATED WITH PROPOFOL AT 40MCG/KG AT THIS TIME. OG TO LIS WITH PARK/PINK SECRETIONS THAT ARE MATCHING ETT SECRETIONS. DAUGHTER HAS BEEN NOTIFIED OF CHANGES. LEVI CATH IN PLACE DRAINING DARK YELLOW URINE. BILATERAL WRIST RESTRAINTS. NO ACUTE NEEDS AT THIS TIME.
[2023-03-27 18:48] LABS: Bun/Creatinine Ratio 19.8 (12.0-20.0); Calcium, Blood 7.6 mg/dL (8.5-10.1); Creatinine, Blood 1.21 mg/dL (0.60-1.20); Potassium, Blood 2.8 mmol/L (3.5-5.5)
[2023-03-27 22:03] LABS: Stool Occult Blood Guaiac 1 Pos (Neg)
[2023-03-28] VITALS (23 sets, daily range): BP systolic 99–140; BP diastolic 64–84
[2023-03-28 03:32] LABS: Base Excess Venous 16.1 mmol/L; Bicarbonate Venous 38.1 mmol/L (24.0-30.0); PCO2 Venous 45.9 mmHg (38-42); pH Blood Venous 7.54 (7.34-7.37)
[2023-03-28 03:37] LABS: Hematocrit 31.6 % (37.0-53.0); Hemoglobin 11.4 g/dL (13.5-17.5); Mean Corpuscular HGB 32.6 pg (26.0-34.0); Mean Corpuscular HGB Conc 36.1 g/dL (31.5-36.5); Mean Corpuscular Volume 90 fL (80-100); Mean Platelet Volume 12.4 fL (9.1-12.4); Platelet Count 82 K/mm3 (150-400); RDW Coefficient Variation 12.3 % (11.7-14.2); RDW Standard Deviation 40.7 fL (35.1-46.3); White Blood Cell Count 1.88 K/mm3 (4.00-11.30)
[2023-03-28 04:16] LABS: Magnesium, Blood 2.2 mg/dL (1.6-2.4)
[2023-03-28 04:19] LABS: Albumin, Blood 2.2 g/dL (3.4-5.0); Albumin/Globulin Ratio 0.7 (0.8-1.8); Bilirubin, Total 0.8 mg/dL (0.1-1.0); Bun/Creatinine Ratio 17.7 (12.0-20.0); Calcium, Blood 6.9 mg/dL (8.5-10.1); Creatinine, Blood 1.13 mg/dL (0.60-1.20); Globulin, Blood 3.1 g/dL (2.2-4.0); Phosphorus, Blood 2.5 mg/dL (2.5-4.9); Potassium, Blood 2.3 mmol/L (3.5-5.5)
[2023-03-28 04:20] LABS: Total Protein, Blood 5.3 g/dL (6.4-8.2)
[2023-03-28 04:31] LABS: BAND PERCENT MAN 17 % (0-8); BASOPHILS PERCENT MAN 0 % (0-2); EOSINOPHILS ABSOLUTE MAN 0.01 K/mm3 (0.00-0.68); EOSINOPHILS PERCENT MAN 1 % (0-6); LYMPHOCYTES ABSOLUTE MAN 0.41 K/mm3 (0.84-5.20); LYMPHOCYTES PERCENT MAN 22 % (21-46); METAMYELOCYTE ABSOLUTE MAN 0.01 K/mm3 (0.00-0.00); METAMYELOCYTE PERCENT MAN 1 % (0-0); MONOCYTES PERCENT MAN 16 % (4-13); MYELOCYTE ABSOLUTE MAN 0.01 K/mm3 (0.00-0.00); MYELOCYTE PERCENT MAN 1 % (0-0); SEG NEUTROPHILS PERCENT MAN 42 % (41-73); TOTAL CELLS COUNTED 100
[2023-03-28 07:21] LABS: Source, Urine Foley catheter
[2023-03-28 07:24] LABS: Appearance, Urine Clear (Clear); Bilirubin, Urine Neg (Neg); Blood, Urine 2+ (Neg); Color, Urine Yellow (P-Yellow); Glucose Qualitative, Urine Neg (Neg); Ketones, Urine Neg (Neg); Leukocyte Esterase, Urine Neg (Neg); Nitrite, Urine Neg (Neg); Protein, Urine 2+ (Neg); Urobilinogen, Urine NORM (Normal)
--- NOTE | 2023-03-28 07:24 | NUR ---
ASSUMED CARE: PT INTUBATED AND SEDATED WITH PROPOFOL AT 40MCG/KG. VENT SETTINGS: AC/VC 12/350/10/30%. ETT A 7.5 AND 25 AT THE TEETH. OG DRAINING YELLOW/GREEN SECRETIONS. LEVI DRAINING DARK YELLOW URINE. KCL RUNNING VIA IV PER ORDERS. NO ACUTE NEEDS OR CONCERNS AT THIS TIME.
[2023-03-28 09:18] LABS: Red Blood Cells, Urine 0-2 /hpf (0-2); White Blood Cells, Urine 0-2 /hpf (0-5)
[2023-03-28 09:19] LABS: Bacteria Few /hpf; Squamous Epithelial Cells Rare /hpf (Few)
--- NOTE | 2023-03-28 09:19 | NUR ---
ENERGY ADMINISTRATOR AT BEDSIDE
[2023-03-28 09:20] LABS: Hyaline Casts 0-2 /lpf (0-2)
[2023-03-28 09:21] LABS: Renal Epithelial Rare /hpf (0-Rare); Transitional Epithelial Cells Rare /hpf (0-Rare)
--- NOTE | 2023-03-28 10:43 | NUR ---
DR SANTOS DISCUSSED WITH THIS NURSE IF TF SHOULD BE STARTED. RN REPORTED STOOL THAT WAS OCCULT POSITIVE AND BMS APPEARED DARKER THAN NORMAL. REVIEWED H/H WHICH IS DECREASED FROM ADMISSION RESULT. DR ORDERING REPEAT H/H FOR THIS AFTERNOON. NO GI AVAILABLE UNTIL MARCH 31
--- NOTE | 2023-03-28 12:30 | NUR ---
PT'S EX- AND DAUGHTER AT BEDSIDE, STATED PT WAS STARTING TO GET AGITATED WITH FREQUENT MOVEMENTS OF LEGS AND ARMS. ADMINISTERED 2MG ATIVAN FOR THIS. PROPOFOL REMAINS AT 30MCG/KG.
[2023-03-28 13:38] LABS: Hematocrit 31.9 % (37.0-53.0); Hemoglobin 11.1 g/dL (13.5-17.5)
--- NOTE | 2023-03-28 15:09 | NUR ---
PT'S ETCO2 ALARMING IN LOW 20S. DISCUSSED WITH PULMONOLOGY WHO FELT ISSUE WAS MECHANICAL AND ASKED FOR SENSOR TO BE CHANGED. CALL TO RT WHO CHANGED SENSOR AND PT'S RR WAS 32. INCREASED PROPOFOL TO 40MCG/KG TO SEE IF PT'S RR IMPROVES. DISCUSSED WITH SURVEY FIELD TECHNICIAN WELL
[2023-03-28 17:24] LABS: Base Excess Venous 10.5 mmol/L; Bicarbonate Venous 33.8 mmol/L (24.0-30.0); PCO2 Venous 35.1 mmHg (38-42); pH Blood Venous 7.58 (7.34-7.37)
--- NOTE | 2023-03-28 18:10 | NUR ---
SHIFT SUMMARY: DR SANTOS CAME TO EVALUATE PT'S BREATHING PATTERN. PT'S RR IN 30S AND ETCO2 ALARMING LOW. ORDERED VBG. VBG RESULTED CRITICAL ALKALOSIS. ORDERED 2L NS AND CHANGED TV ON VENT SETTINGS. SETTINGS NOW SET AT 12/380/5/30%. PROPOFOL INCREASED TO 60MCG/KG TO GET PT'S RESPIRATIONS SLOWED. BOLUSING 2L NS AT THIS TIME. OG TO LIS AND RECTAL TUBE DRAINING DARK GREEN STOOL. DECLINED GI PANEL AT THIS TIME. PT'S DAUGHTER WAS CALLED AND GIVEN AN UPDATE THAT INCLUDED ECHO RESULT.
[2023-03-28 21:11] LABS: Base Excess Venous 6.7 mmol/L; Bicarbonate Venous 29.6 mmol/L (24.0-30.0); PCO2 Venous 46.3 mmHg (38-42); pH Blood Venous 7.43 (7.34-7.37)
[2023-03-29] VITALS (24 sets, daily range): BP systolic 106–129; BP diastolic 71–89
[2023-03-29 03:55] LABS: Hematocrit 28.7 % (37.0-53.0); Hemoglobin 10.2 g/dL (13.5-17.5); Mean Corpuscular HGB 33.1 pg (26.0-34.0); Mean Corpuscular HGB Conc 35.5 g/dL (31.5-36.5); Mean Corpuscular Volume 93 fL (80-100); Mean Platelet Volume 12.1 fL (9.1-12.4); Platelet Count 115 K/mm3 (150-400); RDW Coefficient Variation 12.5 % (11.7-14.2); RDW Standard Deviation 42.6 fL (35.1-46.3); Red Blood Cell Count 3.08 M/mm3 (4.30-5.90); White Blood Cell Count 7.08 K/mm3 (4.00-11.30)
[2023-03-29 05:17] LABS: Albumin, Blood 1.9 g/dL (3.4-5.0); Albumin/Globulin Ratio 0.6 (0.8-1.8); Bilirubin, Total 0.5 mg/dL (0.1-1.0); Bun/Creatinine Ratio 15.3 (12.0-20.0); Calcium, Blood 7.9 mg/dL (8.5-10.1); Creatinine, Blood 0.92 mg/dL (0.60-1.20); Globulin, Blood 3.4 g/dL (2.2-4.0); Potassium, Blood 2.6 mmol/L (3.5-5.5); Total Protein, Blood 5.3 g/dL (6.4-8.2)
--- NOTE | 2023-03-29 07:45 | NUR ---
ASSUMED CARE: REPORT RECEIVED FROM QUINTEN VILLA. ASSUMED CARE OF THIS PT AT APPROX 0700. ON ASSESSMENT, THE PT IS SEDATED W/ PROPOFOL, INTUBATED W/ 7.5 ETT NOTED TO BE 25.0 CM ATT. HE WITHDRAWS SLIGHTLY & GRIMACES TO PAINFUL STIMULI/ ADLs. LS COARSE, DIM IN BASES. MOD AMNTS THICK PARK SECRETIONS SUCTIONED THROUGH ETT. VENT SETTINGS: AC/VC 12/380/5/30% W/ O2 SATS > 95%. MONITOR SHOWS SR W/ HR 70-80s, BP STABLE. OGT IN PLACE TO LIS, SMALL AMNTS ORANGE/ BILE NOTED IN TUBING & CANISTER. RECTAL TUBE PATENT/ DRAINING BROWN LIQUID STLS, BOWEL CARE HELD THIS AM. SKIN CONDITION OVERALL INTACT, COCCYX REDENNED, Q2H REPOSITIONING TO MAINTAIN SKIN INTEGRITY. WILL CONTINUE TO MONITOR & UPDATE NEEDED.
--- NOTE | 2023-03-29 10:00 | NUR ---
DR SANTOS: PROVIDER AT BEDSIDE THIS AM TO SUGAR PT. HE HAS PROVIDED THE PT's DAUGHTER, LUH, WITH AN UPDATE AT THAT TIME. THE POC IS FOR THE PT TO REMAIN INTUBATED FOR 3-4 MORE DAYS DURING THE DURATION OF ETOH W/D. THE PT HAS HX SUBSTANTIAL FOR SEIZURES DURING ETOH W/D IN THE PAST. WILL CONTINUE TO KEEP THE PT SEDATED TO PROMOTE COMFORT & REST AT THIS TIME. GOAL RASS -2. UPDATED PROVIDER ON PT's ORDERS TO RECHECK POTASSIUM LEVEL AFTER GIVING 40 MEQ OF 80 MEQ KCL THAT IS ORDERED. HE STS TO CANCEL LAB & GIVE FULL 80 MEQ KCL, WILL RECHECK LABS IN AM. PHOSPHORUS ADDED TO AM LABS PER DIETARY, PRIOR TO INITIATING TUBE FEEDS THIS SHIFT. NO OTHER CHANGES AT THIS TIME.
--- NOTE | 2023-03-29 17:29 | NUR ---
SHIFT SUMMARY: NO ACUTE CHANGES SINCE PRIOR UPDATES. PT REMAINS SEDATED W/ PROPOFOL & INTUBATED. WITHDRAWS FROM PAINFUL STIMULI & GRIMACES DURING ADLs. LS COARSE & DIM T/O, PT ON VENT W/ SETTINGS: AC/VC 12/380/5/30% W/ O2 SATS > 92%. MONITOR SHOWS SR W/ HR 70-80s, BP STABLE. OGT IN PLACE W/ TUBE FEEDS INFUSING AT GOAL RATE OF 25 ML/HR, PER ORDERS. INITIATED AT APPROX 1600, TOLERATING WELL SO FAR W/ NO S/SX INTOLERANCE NOTED. LEVI PATENT/ DRAINING YELLOW URINE W/ STRICT I&O MEASUREMENTS. SKIN CONDITION OVERALL INTACT, Q2H REPOSITIONING TO MAINTAIN SKIN INTEGRITY. WILL CONTINUE TO MONITOR & REPORT OFF TO ONCOMING RN.
[2023-03-30] VITALS (24 sets, daily range): BP systolic 118–144; BP diastolic 74–91
[2023-03-30 03:26] LABS: Hematocrit 31.3 % (37.0-53.0); Hemoglobin 10.5 g/dL (13.5-17.5); Mean Corpuscular HGB 31.3 pg (26.0-34.0); Mean Corpuscular HGB Conc 33.5 g/dL (31.5-36.5); Mean Corpuscular Volume 93 fL (80-100); Mean Platelet Volume 11.3 fL (9.1-12.4); Platelet Count 158 K/mm3 (150-400); RDW Coefficient Variation 12.5 % (11.7-14.2); RDW Standard Deviation 43.3 fL (35.1-46.3); Red Blood Cell Count 3.35 M/mm3 (4.30-5.90); White Blood Cell Count 6.12 K/mm3 (4.00-11.30)
[2023-03-30 03:48] LABS: Bun/Creatinine Ratio 19.8 (12.0-20.0); Calcium, Blood 8.2 mg/dL (8.5-10.1); Creatinine, Blood 0.81 mg/dL (0.60-1.20); Magnesium, Blood 1.9 mg/dL (1.6-2.4); Phosphorus, Blood 1.1 mg/dL (2.5-4.9); Potassium, Blood 3.7 mmol/L (3.5-5.5)
--- NOTE | 2023-03-30 06:29 | NUR ---
PATIENT RESPONDS TO TACTILE STIMULI. DOES NOT FOLLOW COMMANDS. SR WITH STABLE BP. AC/VC 12/380/5/30%. OGT WITH TF AT GOAL. RECTAL TUBE AND LEVI IN PLACE. PROPOFOL INFUSING AT 55 MCG/KG/MIN.
--- NOTE | 2023-03-30 07:50 | NUR ---
ASSUMED CARE: REPORT RECEIVED FROM ALEXIS Anton RN. ASSUMED CARE OF THIS PT AT APPROX 0700. ON ASSESSMENT, THE PT IS SEDATED W/ PROPOFOL & INTUBATED W/ A 7.5 ETT NOTED TO BE 25.0 CM ATT. HE IS RESTING QUIETLY, WITHDRAWS EXTREMITIES FROM PAINFUL STIMULUS & GRIMACES DURING ADLs. LS CLEAR, DIM IN BASES. VENT SETTINGS: AC/VC 12/380/5/30% W/ O2 SATS > 92%. MONITOR SHOWS SR W/ HR 70-80s, BP STABLE. OGT IN PLACE W/ VHP INFUSING AT GOAL RATE, NO S/SX INTOLERANCE NOTED. RECTAL TUBE PATENT/ DRAINING DARK BROWN-GREEN LIQUID STLS. LEVI PATENT/ DRAINING YELLOW URINE, IN PLACE FOR STRICT I&O. SKIN OVERALL INTACT, BLANCHABLE REDNESS TO COCCYX. Q2H REPOSITIONING. WILL CONTINUE TO MONITOR & UPDATE NEEDED.
--- NOTE | 2023-03-30 18:30 | NUR ---
SHIFT SUMMARY: NO ACUTE CHANGES SINCE PRIOR UPDATE. PT REMAINS SEDATED W/ PROPOFOL & INTUBATED. HE HAS RESTED QUIETLY FOR MOST OF THIS SHIFT, PRN DOSE ATIVAN GIVEN PER EMAR FOR INCREASED AGITATION & COUGHING EPISODE THIS EVENING. LS CLEAR, DIM IN BASES. VENT SETTINGS: AC/VC 12/380/5/30% W/ O2 SATS > 95% ON AVG. MONITOR SHOWS SR W/ HR 70s, BP STABLE. OGT IN PLACE W/ VHP INFUSING AT GOAL RATE, NO S/SX INTOLERANCE NOTED. RECTAL TUBE PATENT/ DRAINING DARK BROWN LIQUID STLS. LEVI PATENT/ DRAINING YELLOW URINE. SKIN CONDITION OVERALL INTACT, Q2H REPOSITIONING TO MAINTAIN SKIN INTEGRITY. PER DR SANTOS, THE POC IS FOR THIS PT TO REMAIN SEDATED & COMFORTABLE THROUGH TONIGHT. SEDATION VACATION & SBT TO BE COMPLETED TOMORROW TO DETERMINE PT's MENTATION & ETOH W/D SYMPTOMS. WILL CONTINUE TO MONITOR & REPORT OFF TO ONCOMING RN.
--- NOTE | 2023-03-30 19:31 | NUR ---
ASSUMED CARE OF PT AT 1900. REPORT RECEIVED AT BEDSIDE. PT PRESENTS IN BED. INTUBATED: AC 12, Tv 380, FIO2 30%, PEEP 5.0. PROPOFOL AT 60MCG'S/KG/MIN. TUBE FEEDING AT 25 ML/HR VITAL HIGH PROTEIN. PT MAINTAINS > 90 PERCENT SATURATIONS WITH CURRENT VENT SETTINGS. WILL REVIEW CHART AND PLAN OF CARE FOR THIS PT.
--- NOTE | 2023-03-30 22:40 | NUR ---
PT BECOMES SOMEWHAT ANXIOUS. TOLERANCE TO VENT DECREASING. OPTED TO GIVE 2 MG ATIVAN FOR PERCEIVED CIWA INCREASE. THIS DONE WITH GOOD RELIEF. IMPROVING VENT TOLERANCE.
[2023-03-31] VITALS (22 sets, daily range): BP systolic 101–150; BP diastolic 68–96
[2023-03-31 04:40] LABS: Hematocrit 34.1 % (37.0-53.0); Hemoglobin 11.5 g/dL (13.5-17.5)
[2023-03-31 05:05] LABS: Bun/Creatinine Ratio 14.1 (12.0-20.0); Creatinine, Blood 0.78 mg/dL (0.60-1.20); Magnesium, Blood 1.3 mg/dL (1.6-2.4); Phosphorus, Blood 2.6 mg/dL (2.5-4.9); Potassium, Blood 2.9 mmol/L (3.5-5.5)
--- NOTE | 2023-03-31 06:38 | NUR ---
PT HAS BEEN MEDICATED WITH ATIVAN 2 MG IV WHEN VENT TOLERANCE AND MILD AGITATION WOULD PRESENT. THIS WAS AFFECTIVE. PT'S MOTHER HAS COME IN TO SEE PT THIS MORNING. PT TOLERATING TUBE FEEDING AT GOAL. NO CHANGES IN VENT SETTINGS THROUGHOUT THE NIGHT. MAINTAINS SATURATIONS > 90 PERCENT. WILL CONTINUE TO MONITOR PT, AND WILL REPORT OFF TO ONCOMING RN.
--- NOTE | 2023-03-31 07:00 | NUR ---
ASSUMPTION OF CARE PT RECEIVING PROPOFOL 60MCG/KG/MIN, KCL AND MAGNESIUM. HE REMAINS INTUBATED WITH VENT SETTINGS AC/VC 12/380/5/30%. TUBE FEEDING INFUSING VIA OGT. LEVI PATENT AND DRAINING TO GRAVITY. RECTAL TUBE PATENT AND DRAINING DARK BROWN LIQUID STOOL. VSS AT THIS TIME. FAMILY MEMBERS AT BEDSIDE AND UPDATED ON PT CONDITION. SEE SHIFT ASSESSMENT.
--- NOTE | 2023-03-31 12:18 | NUR ---
SEDATION VACATION PROPOFOL OFF AT 0920. PT SLOWLY WAKING UP. HE OPENS EYES TO COMMAND, MAINTAINS EYE CONTACT FOR 3-10SEC BEFORE CLOSING EYES AGAIN. PT CAN SQUEEZE HANDS AND MINIMALLY WIGGLE TOES TO COMMAND. DR HUSTON AND RT AT BEDSIDE. ATTEMPTED PS, PT APNEIC AND PLACED BACK ON PREVIOUS SETTINGS AC/VC 12/380/5/30%. PLAN TO START PRECEDEX AND ATTEMPT TRIAL AGAIN TOMORROW. FAMILY AT BEDSIDE AND VERBALIZE UNDERSTANDING.
--- NOTE | 2023-03-31 17:39 | NUR ---
SHIFT SUMMARY PT RECEIVING PROPOFOL 10MCG/KG/MIN AND PRECEDEX 0.5MCG/KG/HR. HE REMAINS INTUBATED WITH VENT SETTINGS AC/VC 12/400/5/30%. PT OFF OF SEDATION FOR SEVERAL HOURS TODAY FOR SEDATION VACATION. PT BEGAN TO WAKE UP AND INCONSISTENTLY FOLLOW SIMPLE COMMANDS BUT DID NOT TOLERATE VENT WEAN. PT CONTINUOUSLY COUGHING/GAGGING. HE HAS COPIOUS AMOUNTS OF ORAL SECRETIONS AND LARGE AMOUNTS OF ETT SECRETIONS. PRECEDEX STARTED TODAY. TUBE FEEDING INFUSING AT GOAL RATE. LEVI PATENT AND DRAINING CLEAR YELLOW URINE TO GRAVITY. RECTAL TUBE PATENT AND DRAINING BROWN LIQUID STOOL WITH 300ML OUTPUT. FAMILY AT BEDSIDE THROUGHOUT THE DAY AND UPDATED ON PT CONDITION. DAUGHTER LUH WOULD LIKE TO BE NOTIFIED PRIOR TO EXTUABATION.
--- NOTE | 2023-03-31 19:18 | NUR ---
ASSUMED CARE OF PT AT 1900. REPORT RECEIVED AT BEDSIDE. PT PRESENTS IN BED. PROPOFOL AT 20 MCG'S/KG/MIN. PRECEDEX IS AT 0.5 MCG'S. SUCTIONED PT PER ETT WITH REURN OF LIGHT CREAM COLORED SECRETIONS. VENT: AC/12, Tv 400, FIO2 30 %, PEEP 7.0. WILL REVIEW CHART AND PLAN OF CARE FOR THIS PT.
--- NOTE | 2023-03-31 20:35 | NUR ---
PT TO RADIOLOGY FOR HEAD CT AND HAS RETURNED. PT TOLERATED THIS FAIR. DID PREMEDICATE PT WITH 2 MG ATIVAN. THIS WAS ADEQUATE FOR COMPLIANCE WITH CT. PT BACK TO ROOM AND MAINTAINS ON 20 MCG'S PROPOFOL AND 0.6 MCG'S PRECEDEX FOR SEDATION. WILL CONTINUE TO MONITOR.
[2023-04-01] VITALS (23 sets, daily range): BP systolic 93–177; BP diastolic 65–121
--- NOTE | 2023-04-01 01:36 | NUR ---
PT CONTINUES WITH VENT AND SEDATION BEFORE. SUCTIONED ETT WITH RETURN OF WHITE COLORED SECRETIONS. TOLERATING TUBE FEEDING WELL AT GOAL RATE. VSS. WILL CONTINUE TO MONITOR.
--- NOTE | 2023-04-01 04:20 | NUR ---
PT HAS SEDATION VACATION IN PROGRESS. IS ABLE TO FOLLOW SOME COMMANDS. WEAKLY ABLE TO TOOL SHAPER SET UP OPERATOR, WELL WIGGLE TOES. PT SPONTANEOUSLY OPENS EYES. DOES NOT RESPOND TO QUESTIONS. HAS HAD OCCASIONAL BRADYCARDIA WITH RATES INTO 40'S. THESE EPISODES ARE BRIEF.
[2023-04-01 04:26] LABS: Bun/Creatinine Ratio 15.1 (12.0-20.0); Calcium, Blood 8.3 mg/dL (8.5-10.1); Creatinine, Blood 0.73 mg/dL (0.60-1.20); Magnesium, Blood 1.9 mg/dL (1.6-2.4); Phosphorus, Blood 3.1 mg/dL (2.5-4.9); Potassium, Blood 3.5 mmol/L (3.5-5.5)
--- NOTE | 2023-04-01 06:39 | NUR ---
PT HAS SEDATION VACATION FOR 1 HOUR THIS MORNING. TOWARDS END OF VACATION, PT BEGINS TO COUGH AND FIDGET MORESO. TOLERATES TUBE FEEDING. HAS BEEN MEDICATED WITH ATIVAN AT APPROX Q 2 HOURS FOR INCREASING RESTLESSNESS IN RELATION TO PROBABLE ETOH W/D'S. HAS BEEN TURNED Q 2 HOURS. RECTAL TUBE WITH MINIMAL ACCESS AT THIS TIME. WILL CONTINUE TO MONITOR PT, AND WILL REPORT OFF TO ONCOMING RN.
--- NOTE | 2023-04-01 12:15 | NUR ---
REASSESSMENT PROPOFOL WAS TURNED OFF THIS AM AT 0835 AND THEN PRECEDEX TURNED OFF ABOUT AN HOUR LATER PT WAS WAKING UP, CALM AND COOPERATIVE. WITH SEDATION OFF PT WAS FOLLOWING COMMANDS APPROPRIATELY. RT SWITCHED HIM TO SPONTANEOUS WTIH PRESSURE SUPPORT AROUND 0900 AND PT REMAINED ON THAT UNTIL DR. HUSTON GAVE OK TO EXTUBATE AT 1150. PT EXTUBATED AT 1155 AND PLACED ON 4L/NC WITH SPO2 96% CURRENTLY. PT HAS A STRONG COUGH AND IS CLEARING HIS SECRETIONS AT THIS TIME. SR, BP STABLE. PT IS COMPLAINING OF HIS BOTTOM HURTING. SCANT OUTPUT FROM RECTAL TUBE OVERNIGHT AND THIS MORNING SO WILL REMOVE RECTAL TUBE. FAMILY AT THE BEDSIDE AND HAS BEEN UPDATED ON PLAN OF CARE.
--- NOTE | 2023-04-01 17:25 | NUR ---
SHIFT SUMMARY PT WAS EXTUBATED TODAY AND HAS DONE WELL SINCE. HIS OXYGEN WAS TITRATED OFF AND PT IS MAINTAINING SPO2 94% ON RA. LUNGS HAVE SOME COARSENESS THAT CLEAR WITH PT'S COUGHING. PT HAS COUGHING FITS THAT BRING UP CLEAR OR WHITE SPUTUM. HR ELEVATED THIS EVENING IN THE 110S, SINUS. PT IS ALERT, ORIENTED TO HIMSELF, FOLLOWS DIRECTIONS. SPEECH IS SOFT AND MUMBLED SO VERY DIFFICULT TO UNDERSTAND. PT DOES SPEAK UP BRIEFLY WHEN ASKED, BUT THEN FALLS BACK INTO HIS MUMBLING SO ITS DIFFICULT TO ACCURATELY ASSESS PT'S MENTATION. HE HAS MADE ODD COMMENTS SUCH ASKING TO HAVE HIS LEGS CUT OFF OR BEING CONCERNED THAT HE IS GOING TO BURN SOMEBODY. CIWAA SCORED 12 THIS AFTERNOON SO ATIVAN GIVEN, BUT IT IS DIFFICULT TO TELL IF IT IS ETOH WITHDRAWAL OR DELIRIUM. PT'S MENTATION HAS NOT FELT SAFE FOR PO INTAKE THIS AFTERNOON SO PT HAS REMAINED NPO. PT'S RECTAL TUBE WAS CAUSING HIM A GREAT AMOUNT OF DISCOMFORT AFTER HE WAS EXTUBATED SO IT WAS REMOVED THIS AFTERNOON. HE HAS HAD 2 LOOSE STOOLS. SKIN ON HIS BOTTOM IS RED AND STARTING TO HAVE A SMALL OPEN AREA, BUT IT IS NOT A GOOD LOCATION TO BE COVERED AND PROTECTED. BARRIER CREAM APPLIED. LEVI REMAINS IN, GOOD URINE OUTPUT. PT'S FAMILY HAS BEEN AT THE BEDSIDE THROUGHOUT THE DAY AND UPDATED.
--- NOTE | 2023-04-01 19:24 | NUR ---
ASSUMED CARE OF PT AT 1900. REPORT RECEIVED AT BEDSIDE. PT PRESENTS IN BED. SOMEWHAT DISORIENTED. DOES FOLLOW SOME WITH CONVERSATION. IN NO APPARENT DISTRESS. MOIST NONPRODUCTIVE COUGH. WILL REVEIW CHART AND PLAN OF CARE FOR THIS PT.
--- NOTE | 2023-04-01 23:01 | NUR ---
CONDOM CATHETER COMES OFF PT. OPTED TO NOT REPLACE. PT HAS BEEN INCONTINENT TO URINE ONCE AND STOOL TWICE. WILL CONTINUE TO CLOSELY MONITOR PT'S SKIN INTEGRITY. SCROTAL ESCORIATION WITH BROKEN SKIN AND JOSE/PERIANAL ESCORIATION WELL. CALAMAZYME CREAM PLACED TO AFFECTIVE AREAS. ATTEMPTED TO GIVE PT HIS HS MEDS IN APPLESAUCE. PT UNFORTUNATELY COUGHS ON APPLESAUCE. HAVE SUCTIONED PT WITH RETURN OF ORALPHARAGEAL COLLECTION.
[2023-04-02] VITALS (22 sets, daily range): BP systolic 122–176; BP diastolic 76–110
[2023-04-02 05:26] LABS: BASOPHILS ABSOLUTE AUTO 0.07 K/mm3 (0.00-0.23); BASOPHILS PERCENT AUTO 1 % (0-2); EOSINOPHILS ABSOLUTE AUTO 0.04 K/mm3 (0.00-0.68); EOSINOPHILS PERCENT AUTO 0 % (0-6); Hematocrit 32.2 % (37.0-53.0); IMMATURE GRAN ABSOLUTE AUTO 0.59 K/mm3 (0.00-0.10); IMMATURE GRAN PERCENT AUTO 4 % (0-1); LYMPHOCYTES ABSOLUTE AUTO 2.15 K/mm3 (0.84-5.20); LYMPHOCYTES PERCENT AUTO 16 % (21-46); MONOCYTES PERCENT AUTO 22 % (4-13); Mean Corpuscular HGB 31.4 pg (26.0-34.0); Mean Corpuscular HGB Conc 34.2 g/dL (31.5-36.5); Mean Corpuscular Volume 92 fL (80-100); Mean Platelet Volume 10.4 fL (9.1-12.4); NEUTROPHILS ABSOLUTE AUTO 7.69 K/mm3 (1.96-9.15); NEUTROPHILS PERCENT AUTO 57 % (41-73); Platelet Count 342 K/mm3 (150-400); RDW Coefficient Variation 12.7 % (11.7-14.2); RDW Standard Deviation 43.2 fL (35.1-46.3); White Blood Cell Count 13.54 K/mm3 (4.00-11.30)
[2023-04-02 05:52] LABS: Magnesium, Blood 1.4 mg/dL (1.6-2.4)
[2023-04-02 05:54] LABS: Bun/Creatinine Ratio 10.8 (12.0-20.0); Calcium, Blood 8.6 mg/dL (8.5-10.1); Creatinine, Blood 0.74 mg/dL (0.60-1.20); Phosphorus, Blood 1.7 mg/dL (2.5-4.9); Potassium, Blood 3.3 mmol/L (3.5-5.5)
--- NOTE | 2023-04-02 06:53 | NUR ---
PT HAS REMOVED HIS CONDOM CATHETER, AND PULLS AT HIS LEADS OFTEN. PT HAS NOT PULLED AT ANY IV LINES. PT WITH GARBLED SPEECH. DOES TEND TO SING SONGS. HAS BEEN INCONTINENT TO STOOL AND URINE. PT ABLE TO ASSIST SOME WITH TURNS WITH MUCH COACHING. PT'S ELECTROLYTES NEEDING REPLACED. ELECTROLYTE PROTOCOL IN AFFECT. PT'S MOTHER COMES IN TO SEE PT THIS MORNING. WILL CONTINUE TO MONITOR PT, AND WILL REPORT OFF TO ONCOMING RN.
--- NOTE | 2023-04-02 08:05 | NUR ---
[place] of Care: Care assumed at 0700hr. Patient drowsy but awake and communicating with staff. Oriented to self and ETOH withdrawal, confused to place, time/date. Pleasant and cooperative with staff. Minimal CIWA at this time. VSS, denies pain/discomfort, SOB/dyspnea. ST eval ordered this morning as NOC shift RN reports concern for aspiration with medication administration last NOC. Will hold PO meds and food until ST eval completed. PICC line to TREESA patent and intact. PG to GARRETT patent and intact. x2 family members at bedside, all questions answered to their satisfaction. Call light in reach. Will continue to monitor.
[2023-04-02 13:39] LABS: Phosphorus, Blood 4.2 mg/dL (2.5-4.9); Potassium, Blood 3.5 mmol/L (3.5-5.5)
--- NOTE | 2023-04-02 17:24 | NUR ---
Shift Summary: No significant changes throughout shift. Patient became more alert and oriented throughout the morning. Occasionally confused to place, but easily re-oriented. Calm, cooperative, and pleasant with staff throughout shift. No prn medications given r/t ETOH withdrawal. Able to use urinal to void, but remains incontinent at times. ST evaluated this morning, and cleared patient for mechanical soft diet. Tolerating diet well, eating 25-40% of meals. Repeat lab values this afternoon were wnl. Family at bedside off/on throughout shift. Makes needs known. Will continue to monitor until report to NOC shift RN.
[2023-04-03] VITALS (8 sets, daily range): BP systolic 123–149; BP diastolic 62–105
--- NOTE | 2023-04-03 01:40 | NUR ---
PT WOKE FROM REST WITH CONSTANT COUGHING SPELLS WITH LITTLE REST BETWEEN. PT REPORTS A TICKLE IN THROAT. VERY DIFFICULT TO HEAR LUNG SOUNDS D/T CONSTANT COUGHING. CALL TO DR WITH MEDICATION ORDER.
--- NOTE | 2023-04-03 02:55 | NUR ---
APPROX [address] AGAIN D/T CONSTANT COUGH AND DESAT WHEN LAYING LESS THAN 70% ANGLE. XRAY ORDER OBTAINED.
[2023-04-03 03:12] LABS: Hematocrit 31.7 % (37.0-53.0); Hemoglobin 10.9 g/dL (13.5-17.5)
[2023-04-03 03:32] LABS: Bun/Creatinine Ratio 10.6 (12.0-20.0); Calcium, Blood 8.2 mg/dL (8.5-10.1); Creatinine, Blood 0.76 mg/dL (0.60-1.20); Magnesium, Blood 1.7 mg/dL (1.6-2.4); Phosphorus, Blood 2.7 mg/dL (2.5-4.9); Potassium, Blood 3.9 mmol/L (3.5-5.5)
--- NOTE | 2023-04-03 04:35 | NUR ---
PT CONTINUES TO COUGH WITH INTERMITENT SOUNDS OF ASPIRATION OF SECRETIONS. DR ONOFRE CALLED AND NT SUCTION ORDER INTIATED. PT NT SUCTIONED WITH PARK/BROWN THICK, SCANT ON RIGHT SIDE, SMALL AMMOUNT ON LEFT SIDE. PT HAS SLOWED COUGHING FOR NOW. WILL CONTINUE TO MONITOR.
--- NOTE | 2023-04-03 06:24 | NUR ---
END OF SHIFT SUMMARY A/O X4 AT THIS TIME. PT MOTHER PEARL IN AT BEDSIDE. VSS AND NO COUGHING FITS SINCE NT SUCTION DONE (SEE PREV CRISTA NOTES). NO OTHER ACUTE CHANGES TO REPORT AT THIS TIME.
--- NOTE | 2023-04-03 12:00 | NUR ---
REASSESSMENT PT GOT UP TO THE CHAIR THIS MORNING WITH 2 PERSON ASSIST AND A WALKER AND HAS SAT UP IN THE CHAIR ALL MORNING. HE IS ALERT AND ORIENTED, COOPERATIVE, FOLLOWING DIRECTIONS. HE WORKED WITH SPEECH THERAPY THIS MORNING AND HAS BEEN EATING AND DRINKING SINCE THEN WITHOUT SIGNS OF ASPIRATION. HE HAS BEEN SITTING UP STRAIGHT AND GOING SLOW LIKE SPEECH INSTRUCTED HIM TO. LUNGS ARE CLEAR, RA. SINUS TACH WITH RATE IN THE LOW 100S AT REST, UP TO 120 WITH ACTIVITY. BP STABLE. CONTINENT OF URINE AND MOSTLY OF STOOL. BOTTOM IS STILL VERY EXCORIATED, BARRIER CREAM APPLIED WITH EACH CLEANING. PT'S MOTHER IS AT THE BEDSIDE AND HAS BEEN UPDATED. PT STATES HE CHEWS ABOUT 1 CAN OF TOBACCO A DAY AND REQUESTED A NICOTINE PATCH. DR. RAMOS INFORMED AND GAVE ORDERS FOR PATCH.
--- NOTE | 2023-04-03 17:28 | NUR ---
SHIFT SUMMARY PT HAS SPENT THE DAY SITTING UP IN THE CHAIR. HE WORKED WITH PT AND SPEECH THERAPY. HE REMAINS ALERT AND ORIENTED. CIWAA NEGATIVE. LUNG SOUNDS ARE A LITTLE COARSE THIS EVENING. STILL MAINTAINING SPO2 ABOVE 90% ON RA. SINUS TACH IN LOW 100S AT REST, UP TO 120 WITH ACTIVITY. VOIDING USING THE URINAL. BOTTOM STILL RED. MULTIPLE VISITORS THROUGHOUT THE DAY. CONTINUING TO MONITOR.
--- NOTE | 2023-04-03 20:53 | NUR ---
ASSUMPTION OF CARE THIS RN ASSUMED CARE OF PATIENT AT 1900. PT A&O X4. ABLE TO MAKE NEEDS KNOWN. CIWA NEGATIVE. SR/ST ON MONITOR. BP STABLE. ON RA WITH SPO2 >92%. PT TRANSFERRED FROM ICU 5 TO ICU 11. PT UP IN CHAIR AT THIS TIME. REINFORCED EDUCATION REGARDING SWALLOW PRECAUTIONS PER ST; PT VERBALIZED UNDERSTANDING AND DEMONSTRATED KNOWLEDGE REGARDING SWALLOW PRECAUTIONS AND DIET ORDER. CALL LIGHT WITHIN REACH.
[2023-04-04 00:30] VITALS: BP 132/93
[2023-04-04 04:14] VITALS: BP 166/84
--- NOTE | 2023-04-04 04:50 | NUR ---
SHIFT SUMMARY NO ACUTE EVENTS OVERNIGHT. VITALS STABLE. SEE ASSESSMENT. PT CALLING APPROPRIATELY. UP IN RECLINER AT THIS TIME. NO CHANGES TO NEURO. CIWA CONTINUES TO BE NEGATIVE. BED IN LOWEST POSITION AND CALL LIGHT WITHIN REACH. THIS RN WILL REPORT TO ONCOMING DAYSHIFT RN.
[2023-04-04 07:56] VITALS: BP 132/96
--- NOTE | 2023-04-04 08:14 | NUR ---
AM NOTE... ASSUMED CARE OF PT AT 0700, PT IS A&Ox4. HE IS IN ST LOW 100'S BP STABLE WITH MAPS>65. NO EDEMA NOTED ON THIS ASSESSMENT. HE IS ON RA WITH O2 SAT>95% L/S CLEAR T/O SLIGHTLY COARSE TO THE LLL. BT PRESENT AND NORMOACTIVE. PT IS IN ATTENDS AND ABLE TO USE THE URINAL NEEDED. PT IS UP IN THE RECLINER WITH MIN ASSIST. -CIWA NOTED ON THIS ASSESSMENT. CALL LIGHT IN REACH WILL CONTINUE TO MONITOR.
[2023-04-04 16:32] VITALS: BP 130/97
--- NOTE | 2023-04-04 18:10 | NUR ---
PT ARRIVED TO THE MEDICAL FLOOR THIS EVENING FROM THE ICU VIA WHEELCHAIR. PT IS WEAK AND WAS ASSISTED TO THE RECLINER. THE PT WAS ORIENTED TO THE ROOM LAYOUT AND CALL SYSTEM. PT DECLINED DINNER FROM THE KITCHEN, HOWEVER, HIS DAUGHTER BROUGHT HIM A HAMBURGER WHICH HE ATE WUHOUT INCIDENT. PT APPEARS TO BE BREATHING EAILY. RESTING COMFORTLY IN THE RECLINER. CALL LIGHT IN REACH
[2023-04-04 20:04] VITALS: BP 109/77
[2023-04-05 02:19] VITALS: BP 136/90
--- NOTE | 2023-04-05 04:32 | NUR ---
SHIFT SUMMARY A/O NICE MAN EXCITED ABOUT POSSIBLY GOING HOME, I ASSISTED PT TO BATHROOM USING FWW AND HE DID ALRIGHT. I EXPLAINED HE NEEDED TO CALL BECCINDYUSE HE WAS A LITTLE UNSTEADY AND PT STATED HE UNDERSTOOD. PT ADAMANT ABOUT GOING HOME STATES HE HAS ALL THE HELP HE NEEDS AND WILL NEVER DRINK AGAIN. DAUGHTER TO COME IN THE MORNING TO SPEAK WITH RECEIVED REPORT THAT PT TOOK [employer]IVAN FOR SLEEP AT NIGHT SO WHEN HE REQUESTED IT I GAVE IT TO HIM. ONE HOUR LATER PT WAS VERY CONFUSED AND RAN INTO THE BATHROOM THINKING HE WAS LATE FOR THE DOCTOR VISIT, IT TOOK SEVERAL MINS TO REORIENT THE PT AND ONCE PT WAS REORIENTED HE WAS VERY EMBARRASSED. PT ASSISTED BACK TO BED AND IS ATTEMPTING TO GET SOME REST.
[2023-04-05 05:51] LABS: Hematocrit 32.3 % (37.0-53.0); Hemoglobin 10.9 g/dL (13.5-17.5)
[2023-04-05 06:11] LABS: Bun/Creatinine Ratio 9.8 (12.0-20.0); Calcium, Blood 8.6 mg/dL (8.5-10.1); Creatinine, Blood 0.71 mg/dL (0.60-1.20); Potassium, Blood 3.5 mmol/L (3.5-5.5)
[2023-04-05 07:41] VITALS: BP 145/91
[2023-04-05] MEDS ORDERED: LISI20 PO (16:19)
--- NOTE | 2023-04-05 17:26 | NUR ---
SHIFT SUMMARY PT TO D/C HOME W/ HOME HEALTH. PT ALERT AND ORIENTED TO PERSON, PLACE, BUT GETS CONFUSED WITH TIME AND SITUATION. PT TO RETURN HOME WITH FAMILY. VSS. NO ACUTE EVENTS. PT D/MICHELLE HOME VIA W/C. ALL POSSESSIONS OUT OF ROOM AND WITH PT.
== END 2023-04-05 17:19 | disposition home health service (06) | DRG 870 ==
LOC: ER 19:29 → ICUE 23:20 → MEDS 23:20 → ICUE 23:43 → MEDS 04-04 16:56
PROVIDERS: Emergency Medicine; Family Medicine; Internal Medicine; Internal Medicine Critical Care Medicine; Student in an Organized Health Care Education/Training Program; ADMIT Student in an Organized Health Care Education/Training Program
PROC: 3E03329 Introduction of Other Anti-infective into Peripheral Vein, Percutaneous Approach (ICD-10-PCS; 2023-03-26)
PROC: 5A1955Z Respiratory Ventilation, Greater than 96 Consecutive Hours (ICD-10-PCS; principal; 2023-03-27)
PROC: 0BH17EZ Insertion of Endotracheal Airway into Trachea, Via Natural or Artificial Opening (ICD-10-PCS; 2023-03-27)
PROC: B24BZZZ Ultrasonography of Heart with Aorta (ICD-10-PCS; 2023-03-28)
DX: A41.9 Sepsis, unspecified organism (principal); J69.0 Pneumonitis due to inhalation of food and vomit; J96.01 Acute respiratory failure with hypoxia; K85.20 Alcohol induced acute pancreatitis without necrosis or infection; G92.8 Other toxic encephalopathy; E87.1 Hypo-osmolality and hyponatremia; N17.9 Acute kidney failure, unspecified; D61.818 Other pancytopenia; F10.239 Alcohol dependence with withdrawal, unspecified; E87.3 Alkalosis; E86.0 Dehydration; Z11.52 Encounter for screening for COVID-19; F10.229 Alcohol dependence with intoxication, unspecified; K29.20 Alcoholic gastritis without bleeding; R13.12 Dysphagia, oropharyngeal phase; R53.81 Other malaise; F41.9 Anxiety disorder, unspecified; F32.A Depression, unspecified; Y90.5 Blood alcohol level of 100-119 mg/100 ml; E87.6 Hypokalemia; R19.5 Other fecal abnormalities; I10 Essential (primary) hypertension; E87.8 Other disorders of electrolyte and fluid balance, not elsewhere classified; K76.0 Fatty (change of) liver, not elsewhere classified; E83.39 Other disorders of phosphorus metabolism; E83.42 Hypomagnesemia; Z86.73 Personal history of transient ischemic attack (TIA), and cerebral infarction without residual deficits; Z87.891 Personal history of nicotine dependence; Z28.21 Immunization not carried out because of patient refusal
CPT/HCPCS: 0241U; 31500; 31720; 36415; 36569; 36600; 51702; 70450; 71045; 74176; 80048; 80053; 80061; 80069; 81001; 82270; 82803; 83605; 83615; 83690; 83735; 83880; 83930; 83935; 84100; 84132; 84295; 84300; 84439; 84443; 84481; 84484; 85014; 85018; 85025; 85027; 85379; 85610; 87070; 87086; 87205; 92526; 92610; 93005; 93010; 94002; 94003; 94640; 94660; 94664; 94760; 94762; 96365; 96375; 97110; 97116; 97162; 97165; 97535; 99285-25; A9270; C1751; C8929; C9113; J0295; J0360; J0696; J1650; J1953; J2060; J2704; J3411; J3475; J3480; J7030; J7050; J7060; Q9957

== ENCOUNTER 2024-09-24 18:47 | Emergency (ER) | payer OTHER ==
[~2024-09-24] VITALS: Ht 180.3 cm; Wt 68.0 kg
[~2024-09-24 18:47] MED LIST changes: +Etomidate 2MG / ML 10ML Vial IV ONE; +LISI20 PO; +LORazepam 2 MG/ML 1ML Injection IV ONE; +Midazolam HCl 1MG / ML 2ML Vial IV ONE; +Rocuronium Bromide 10 MG/ML 5ML Injection IV ONE
[2024-09-24] MEDS ORDERED: LORazepam 2 MG/ML 1ML Injection ONE (19:10)
[2024-09-24] MEDS ORDERED: levETIRAcetam 3,000 MG in NS 100 ML IV ONE (19:20)
[2024-09-24] MEDS ORDERED: NS 1,000 ML IV ONE (19:21)
[2024-09-24] MEDS ORDERED: propofoL 100 ML IV ONE (19:33)
[2024-09-24] MEDS ORDERED: NS 1,000 ML IV SCH (19:35)
[2024-09-24] MEDS ORDERED: Thiamine HCl 100 MG in NS 50 ML IV ONE (19:35)
[2024-09-24] MEDS ORDERED: LORazepam 2 MG/ML 1ML Injection IV ONE ×2 (19:35→22:30)
[2024-09-24] MEDS ORDERED: propofoL 100 ML IV SCH (19:35)
[2024-09-24] MEDS ORDERED: fentaNYL citrate 1,000 MCG in NS 80 ML IV SCH (19:35)
[2024-09-24 19:42] LABS: Source, Urine Clean Catch
[2024-09-24 19:43] LABS: BASOPHILS ABSOLUTE AUTO 0.14 K/mm3 (0.00-0.23); BASOPHILS PERCENT AUTO 1 % (0-2); EOSINOPHILS ABSOLUTE AUTO 0.05 K/mm3 (0.00-0.68); EOSINOPHILS PERCENT AUTO 0 % (0-6); Hematocrit 46.5 % (37.0-53.0); IMMATURE GRAN ABSOLUTE AUTO 0.43 K/mm3 (0.00-0.10); IMMATURE GRAN PERCENT AUTO 2 % (0-1); LYMPHOCYTES ABSOLUTE AUTO 5.14 K/mm3 (0.84-5.20); LYMPHOCYTES PERCENT AUTO 29 % (21-46); MONOCYTES ABSOLUTE AUTO 1.64 K/mm3 (0.16-1.47); MONOCYTES PERCENT AUTO 9 % (4-13); Mean Corpuscular HGB 30.4 pg (26.0-34.0); Mean Corpuscular HGB Conc 30.1 g/dL (31.5-36.5); Mean Corpuscular Volume 101 fL (80-100); Mean Platelet Volume 10.1 fL (9.1-12.4); NEUTROPHILS ABSOLUTE AUTO 10.47 K/mm3 (1.96-9.15); NEUTROPHILS PERCENT AUTO 59 % (41-73); Platelet Count 346 K/mm3 (150-400); RDW Coefficient Variation 16.3 % (11.7-14.2); RDW Standard Deviation 61.5 fL (35.1-46.3); White Blood Cell Count 17.87 K/mm3 (4.00-11.30)
[2024-09-24 19:46] LABS: Appearance, Urine Clear (Clear); Bilirubin, Urine Neg (Neg); Blood, Urine 3+ (Neg); Color, Urine Yellow (P-Yellow); Glucose Qualitative, Urine Neg (Neg); Ketones, Urine Neg (Neg); Leukocyte Esterase, Urine Neg (Neg); Nitrite, Urine Neg (Neg); Protein, Urine 3+ (Neg); Specific Gravity, Urine 1.015 (1.003-1.022); Urobilinogen, Urine NORM (Normal)
[2024-09-24] MEDS ORDERED: Acetaminophen 650 MG Supp PR ONE (19:50)
[2024-09-24 19:54] LABS: Magnesium, Blood 2.6 mg/dL (1.6-2.4); Salicylate 2.4 mg/dL (2.8-20.0)
[2024-09-24 20:01] LABS: Amorphous Light (0-Heavy); Bacteria Rare /hpf; Mucus Light (0-Heavy); Red Blood Cells, Urine 0-2 /hpf (0-2); Squamous Epithelial Cells Rare /hpf (Few); White Blood Cells, Urine Not Seen /hpf (0-5)
[2024-09-24 20:03] LABS: Alanine Aminotransfer (ALT/SGP 159 U/L (12-78); Albumin, Blood 4.2 g/dL (3.4-5.0); Alk Phos 112 U/L (50-136); Anion Gap 38 mmol/L (3-11); Aspartate Aminotrans (AST/SGOT 217 U/L (12-37); Bilirubin, Total 0.6 mg/dL (0.1-1.0); Blood Urea Nitrogen 10 mg/dL (8-24); Bun/Creatinine Ratio 7.8 (12.0-20.0); CO2, Blood 6 mmol/L (21-32); Chloride, Blood 96 mmol/L (98-108); Creatinine, Blood 1.28 mg/dL (0.60-1.20); Globulin, Blood 4.2 g/dL (2.2-4.0); Glomerular Filtration Rate 68 (60-); Glucose, Blood 280 mg/dL (70-99); Phosphorus, Blood 5.7 mg/dL (2.5-4.9); Sodium, Blood 136 mmol/L (136-145); Total Protein, Blood 8.4 g/dL (6.4-8.2)
[2024-09-24 20:04] LABS: Acetaminophen, Random <2.0 ug/mL (10.0-30.0); Ethanol (Alcohol), Blood, Med <3 mg/dL
[2024-09-24] MEDS ORDERED: Piperacillin/Tazobactam Sod 3.375 GM in NS 100 ML IV ONE (20:10)
[2024-09-24 20:15] LABS: U Amphetamine Screen Not Detected; U Barbituate Screen Not Detected; U Benzodiazapine Screen Not Detected; U Buprenorphine Screen Not Detected; U Cannabinoids Screen DETECTED; U Cocaine Screen Not Detected; U Methadone Screen Not Detected; U Methamphetamine Screen Not Detected; U Opiates Screen Not Detected; U Oxycodone Screen Not Detected; U Phencyclidine Screen Not Detected
[2024-09-24] MEDS ORDERED: Lactated Ringer's 1,000 ML IV ONE (20:15)
[2024-09-24] MEDS ORDERED: Vancomycin HCL 1,750 MG in NS 500 ML IV ONE (20:30)
[2024-09-24 20:39] LABS: PCO2 Arterial 46.4 mmHg (35-45); PO2 Arterial 201 mmHg (80-100)
[2024-09-24 20:41] LABS: pH Blood Arterial 7.25 (7.35-7.45)
[2024-09-24 20:53] LABS: CORONAVIRUS COVID-19 AG Negative (NEGATIVE); INFLUENZA A AG Negative (NEGATIVE); INFLUENZA B AG Negative (NEGATIVE)
[2024-09-24] MEDS ORDERED: FentaNYL Citrate 50 MCG/ML 2 ML Injection ONE (21:05)
[2024-09-24] MEDS ORDERED: FentaNYL Citrate 50 MCG/ML 2 ML Injection IV ONE (21:05)
[2024-09-24 21:37] LABS: Beta-hydroxybutyrate 1.4 mg/dL (0.2-2.8)
[2024-09-24] MEDS ORDERED: Midazolam HCL 50 MG in NS 40 ML IV PRN (21:55)
[2024-09-24] MEDS ORDERED: Ketorolac Tromethamine 15mg Vial IV ONE (22:05)
[2024-09-24] MEDS ORDERED: Midazolam HCl 1MG / ML 2ML Vial IV ONE (22:30)
[2024-09-24 22:52] LABS: Albumin, Blood 3.6 g/dL (3.4-5.0); Albumin/Globulin Ratio 1.1 (0.8-1.8); Bilirubin, Total 0.5 mg/dL (0.1-1.0); Bun/Creatinine Ratio 9.5 (12.0-20.0); Calcium, Blood 7.8 mg/dL (8.5-10.1); Creatinine, Blood 0.95 mg/dL (0.60-1.20); Globulin, Blood 3.3 g/dL (2.2-4.0); Potassium, Blood 3.8 mmol/L (3.5-5.5); Total Protein, Blood 6.9 g/dL (6.4-8.2)
[2024-09-24 23:40] VITALS: BP 145/86
[2024-09-25] MEDS ORDERED: Vancomycin HCL 1,000 MG in NS 250 ML IV SCH (09:00)
[2024-09-25] MEDS ORDERED: Folic Acid 1 MG in NS 50 ML IV SCH (09:00)
== END 2024-09-24 23:56 | disposition short-term general hospital (02) ==
LOC: ER 18:47
PROVIDERS: Student in an Organized Health Care Education/Training Program
DX: G40.901 Epilepsy, unspecified, not intractable, with status epilepticus (principal); F10.90 Alcohol use, unspecified, uncomplicated; E87.20 Acidosis, unspecified; R06.89 Other abnormalities of breathing; I10 Essential (primary) hypertension; Z79.899 Other long term (current) drug therapy; Z86.73 Personal history of transient ischemic attack (TIA), and cerebral infarction without residual deficits; Z11.52 Encounter for screening for COVID-19; Z86.69 Personal history of other diseases of the nervous system and sense organs
CPT/HCPCS: 31500; 36415; 36600; 51702; 70450; 71045; 71260; 72125; 74177; 80053; 80320; 81001; 82010; 82803; 82947; 83605; 83690; 83735; 83880; 83930; 84100; 84484; 85025; 86850; 86900; 86901; 87040; 87428-QW; 93005; 93010; 94002; 96365-59; 96375-59; 99285-25; A9270; G0480; J1885; J1953; J2060; J2250; J2543; J2704; J3010; J3370; J3411; J7030; J7040; J7050; J7120; Q9967

== ENCOUNTER 2024-12-18 10:53 | Emergency (ER) | payer OTHER ==
[~2024-12-18] VITALS: Ht 167.6 cm; Wt 63.5 kg
[~2024-12-18 10:53] MED LIST changes: -Etomidate 2MG / ML 10ML Vial IV ONE; -LORazepam 2 MG/ML 1ML Injection IV ONE; -Midazolam HCl 1MG / ML 2ML Vial IV ONE; -Rocuronium Bromide 10 MG/ML 5ML Injection IV ONE
[2024-12-18] MEDS ORDERED: levETIRAcetam 2,000 MG in NS 100 ML IV ONE ×2 (11:15→11:20)
[2024-12-18 11:31] LABS: BASOPHILS ABSOLUTE AUTO 0.06 K/mm3 (0.00-0.23); BASOPHILS PERCENT AUTO 1 % (0-2); EOSINOPHILS ABSOLUTE AUTO 0.06 K/mm3 (0.00-0.68); EOSINOPHILS PERCENT AUTO 1 % (0-6); Hematocrit 38.7 % (37.0-53.0); Hemoglobin 13.0 g/dL (13.5-17.5); IMMATURE GRAN ABSOLUTE AUTO 0.06 K/mm3 (0.00-0.10); IMMATURE GRAN PERCENT AUTO 1 % (0-1); LYMPHOCYTES ABSOLUTE AUTO 0.99 K/mm3 (0.84-5.20); LYMPHOCYTES PERCENT AUTO 11 % (21-46); MONOCYTES ABSOLUTE AUTO 0.62 K/mm3 (0.16-1.47); MONOCYTES PERCENT AUTO 7 % (4-13); Mean Corpuscular HGB Conc 33.6 g/dL (31.5-36.5); Mean Corpuscular Volume 88 fL (80-100); NEUTROPHILS ABSOLUTE AUTO 7.59 K/mm3 (1.96-9.15); NEUTROPHILS PERCENT AUTO 81 % (41-73); NRBC ABSOLUTE 0.00 K/mm3 (0.00-0.02); NRBC Auto 0.0 /100 WBC (0.0-0.2); Platelet Count 228 K/mm3 (150-400); RDW Coefficient Variation 15.9 % (11.7-14.2); RDW Standard Deviation 52.2 fL (35.1-46.3)
[2024-12-18 11:47] LABS: Alanine Aminotransfer (ALT/SGP 42.0 U/L (12-78); Albumin, Blood 3.8 g/dL (3.4-5.0); Albumin/Globulin Ratio 1.0 (0.8-1.8); Anion Gap 14.0 mmol/L (3-11); Aspartate Aminotrans (AST/SGOT 67.0 U/L (12-37); Bilirubin, Total 0.5 mg/dL (0.1-1.0); Blood Urea Nitrogen 10.0 mg/dL (8-24); CO2, Blood 23.0 mmol/L (21-32); Calcium, Blood 8.4 mg/dL (8.5-10.1); Chloride, Blood 101.0 mmol/L (98-108); Creatinine, Blood 0.8 mg/dL (0.60-1.20); Globulin, Blood 3.9 g/dL (2.2-4.0); Glucose, Blood 167.0 mg/dL (70-99); Magnesium, Blood 2.2 mg/dL (1.6-2.4); Potassium, Blood 3.5 mmol/L (3.5-5.5); Sodium, Blood 134.0 mmol/L (136-145); Total Protein, Blood 7.7 g/dL (6.4-8.2)
[2024-12-18 13:00] VITALS: BP 144/76
[2024-12-18] MEDS ORDERED: LEVE500 PO (13:05)
== END 2024-12-18 13:15 | disposition home or self-care (01) ==
LOC: ER 10:53
PROVIDERS: Student in an Organized Health Care Education/Training Program
DX: R56.9 Unspecified convulsions (principal); I10 Essential (primary) hypertension; F17.210 Nicotine dependence, cigarettes, uncomplicated; Z86.73 Personal history of transient ischemic attack (TIA), and cerebral infarction without residual deficits; Z91.148 Patient's other noncompliance with medication regimen for other reason; Z79.899 Other long term (current) drug therapy
CPT/HCPCS: 80053; 83735; 85025; 93005; 93010; 96365; 99284-25; J1953

== ENCOUNTER 2025-01-20 06:33 | Emergency (ER) | payer OTHER ==
[~2025-01-20] VITALS: Ht 167.6 cm; Wt 63.5 kg
[2025-01-20 07:14] LABS: BASOPHILS ABSOLUTE AUTO 0.03 K/mm3 (0.00-0.23); BASOPHILS PERCENT AUTO 0 % (0-2); EOSINOPHILS ABSOLUTE AUTO 0.01 K/mm3 (0.00-0.68); EOSINOPHILS PERCENT AUTO 0 % (0-6); Hematocrit 38.5 % (37.0-53.0); Hemoglobin 13.6 g/dL (13.5-17.5); IMMATURE GRAN ABSOLUTE AUTO 0.02 K/mm3 (0.00-0.10); IMMATURE GRAN PERCENT AUTO 0 % (0-1); LYMPHOCYTES ABSOLUTE AUTO 0.45 K/mm3 (0.84-5.20); LYMPHOCYTES PERCENT AUTO 6 % (21-46); MONOCYTES ABSOLUTE AUTO 0.85 K/mm3 (0.16-1.47); MONOCYTES PERCENT AUTO 12 % (4-13); Mean Corpuscular HGB Conc 35.3 g/dL (31.5-36.5); Mean Corpuscular Volume 84 fL (80-100); NEUTROPHILS ABSOLUTE AUTO 5.95 K/mm3 (1.96-9.15); NEUTROPHILS PERCENT AUTO 81 % (41-73); NRBC ABSOLUTE 0.00 K/mm3 (0.00-0.02); NRBC Auto 0.0 /100 WBC (0.0-0.2); Platelet Count 140 K/mm3 (150-400); RDW Coefficient Variation 16.6 % (11.7-14.2); RDW Standard Deviation 51.3 fL (35.1-46.3)
[2025-01-20] MEDS ORDERED: Haloperidol Lactate Inj. 5 MG/ML Injection IV ONE (07:15)
[2025-01-20] MEDS ORDERED: NS 1,000 ML IV SCH ×2 (07:15→09:15)
[2025-01-20] MEDS ORDERED: FentaNYL Citrate 50 MCG/ML 2 ML Injection IV ONE (07:15)
[2025-01-20 07:38] LABS: Alanine Aminotransfer (ALT/SGP 114.0 U/L (12-78); Albumin, Blood 4.9 g/dL (3.4-5.0); Albumin/Globulin Ratio 1.2 (0.8-1.8); Anion Gap 19.0 mmol/L (3-11); Aspartate Aminotrans (AST/SGOT 230.0 U/L (12-37); Bilirubin, Total 1.5 mg/dL (0.1-1.0); Blood Urea Nitrogen 15.0 mg/dL (8-24); CO2, Blood 24.0 mmol/L (21-32); Calcium, Blood 8.9 mg/dL (8.5-10.1); Chloride, Blood 89.0 mmol/L (98-108); Creatinine, Blood 0.97 mg/dL (0.60-1.20); Globulin, Blood 4.2 g/dL (2.2-4.0); Glucose, Blood 183.0 mg/dL (70-99); Potassium, Blood 4.3 mmol/L (3.5-5.5); Sodium, Blood 128.0 mmol/L (136-145); Total Protein, Blood 9.1 g/dL (6.4-8.2)
[2025-01-20] MEDS ORDERED: Morphine Sulfate 4 MG/1 ML Injection IV ONE (09:20)
[2025-01-20] MEDS ORDERED: ONDA4ODT MM (11:01)
[2025-01-20 11:21] VITALS: BP 174/98
== END 2025-01-20 11:23 | disposition home or self-care (01) ==
LOC: ER 06:33
PROVIDERS: Emergency Medicine
DX: R11.2 Nausea with vomiting, unspecified (principal); R10.11 Right upper quadrant pain; E87.8 Other disorders of electrolyte and fluid balance, not elsewhere classified; I10 Essential (primary) hypertension; Z79.899 Other long term (current) drug therapy
CPT/HCPCS: 74177; 80053; 83690; 85025; 93005; 93010; 96361; 96374-59; 96375; 99284-25; A9270; J1630; J2270; J3010; J7030; Q9967